=== PATIENT | male | born 1935 | race Caucasian/White ===

== ENCOUNTER 2022-06-28 20:47 | Emergency (ER) | payer MEDICARE, OTHER, SELFPAY ==
[2022-06-28] VITALS (20 sets, daily range): BP systolic 101–137; BP diastolic 64–90; PULSE 65–66; RESP 17; TEMP 36.4; O2SAT 94–98
--- NOTE | ~2022-06-28 | XR_ITS ---
XR chest 1V portable 06/28/2022 21:42 Indication: Altered mental status Procedure: AP portable chest Comparison: No prior studies Findings: Heart size normal. No focal air space disease, pulmonary edema, pleural effusion or suspect ed pneumothorax. No acute osseous abnormality. Impression: 1: No acute cardiopulmonary disease. Reviewed, dictated and finalized at location A. ND MAKER Impression: 1: No acute cardiopulmonary disease.
--- NOTE | ~2022-06-28 | CT_ITS ---
EXAMINATION: CT brain wo con DATE: 06/28/2022 21:57 INDICATION: Altered mental status TECHNIQUE: Computed tomography (CT) of the head was performed without intravenous contrast. The dose- length product was 832.33 mGy-cm. Automated exposure control and iterative reconstruction technique w ere employed. COMPARISON: None FINDINGS: Generalized atrophy. There are scattered mild periventricular and subcortical white matter changes, most likely related to small vessel ischemic disease (microangiopathy). There is intracrania l atherosclerosis. No ventriculomegaly or midline shift. No acute intracranial hemorrhage, infarction , mass or mass effect. Paranasal sinuses and left mastoid air cells are pneumatized. There is a right mastoid effusion. No depressed skull fractures. Study limited by motion artifact near the vertex. IMPRESSION: 1. No acute intracranial abnormality. Reviewed, dictated and finalized at location A. Y SCIENTIST
--- NOTE | 2022-06-28 21:32 | ECG_ITS ---
Measurements Intervals [place] Rate: 64 P: 47 WA: 274 QRS: -21 QRSD: 135 T: 56 QT: 441 QTc: 456 Interpretive Statements SINUS RHYTHM WITH FIRST DEGREE AV BLOCK INCOMPLETE LEFT BUNDLE BRANCH BLOCK ABNORMAL ECG ] NO PREVIOUS ECG AVAILABLE FOR COMPARISON Electronically Signed On 06-29-2022 15:18:54 SCOOP OPERATOR by Conrad Cortez M.D.
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
[2022-06-28 22:20] LABS: Basophils Percent Auto 0.3 % (0.2-1.2); Eosinophils Absolute Auto 0.1 K/mm3 (0-0.3); Eosinophils Percent Auto 1.9 % (0-4.4); Hematocrit 37.6 % (42.0-52.0); Hemoglobin 12.2 g/dL (14.0-18.0); Immature Granulocyte Absolute 0.01 K/mm3 (0.00-0.031); Immature Granulocyte Percent A 0.2 % (0-0.5); Immature Platelet Fraction Pct 3.2 % (0.9-11.2); Lymphocytes Absolute Auto 1.67 K/mm3 (0.9-3.2); Lymphocytes Percent Auto 29.1 % (18.3-44.2); Mean Corpuscular HGB Conc 32.4 g/dl (32-36); Mean Corpuscular Hemoglobin 28.8 pg (26-34); Mean Corpuscular Volume 88.7 fl (80-100); Mean Platelet Volume 9.9 fl (7.4-10.4); Monocytes Absolute Auto 0.4 K/mm3 (0.1-0.6); Monocytes Percent Auto 7.3 % (2.6-8.5); Neutrophils Absolute Auto 3.5 K/mm3 (1.3-6.7); Neutrophils Percent Auto 61.2 % (45.5-73.1); Platelet Count Result 124 k/mm3 (150-375); Red Blood Count 4.24 M/mm3 (4.6-6.20); Red Cell Distribution Width 14.7 % (11.5-14.5); White Blood Count 5.7 K/mm3 (4.5-10.0)
[2022-06-28 22:25] LABS: Glucose Point of Care 162 mg/dl (65-105)
[2022-06-28 22:26] LABS: Alanine Aminotransferase 12 U/L (6-50); Albumin Level 3.7 g/dL (3.5-5.1); Alkaline Phosphatase 109 U/L (38-126); Anion Gap 4 mmol/L (8-16); Aspartate Amino Transferase 19 U/L (17-59); Bilirubin,Total 0.4 mg/dL (0.2-1.3); Blood Urea Nitrogen 30 mg/dL (9-20); Calcium 8.5 mg/dL (8.4-10.2); Carbon Dioxide 27 mmol/L (22-30); Chloride 106 mmol/L (98-107); Estimated CRCL calculation 39 ml/min; Estimated Glomerular Filt Rate 58; Glucose 169 mg/dL (65-110); Potassium 4.2 mmol/L (3.4-5.0); Sodium 137 mmol/L (137-145)
[2022-06-28 22:33] LABS: Appearance Urine Cloudy (Clear); Bilirubin Urine Negative (Negative); Blood Urine Trace-intact (Negative); Color Urine Yellow (Yellow); Glucose Urine UA 2+ mg/dL (Negative); Ketones Urine Negative (Negative); Leukocyte Esterase Ur 1+ LEU/UL (Negative); Nitrate Urine Negative (Negative); Protein Urine Trace mg/dL (Negative); Specific Grav Ur 1.015 (1.001-1.035); Urobilinogen Urine 0.2 mg/dL (<2.0); pH Urine 5.5 (5.0-9.0)
[2022-06-28 22:38] LABS: Mucus Urine Rare /lpf; WBC Urine >75 /hpf
[2022-06-28 22:45] LABS: Add Urine Microscopic? YES
[2022-06-28 22:51] LABS: Influenza A QL RT-PCR Negative (Negative); Influenza B QL RT-PCR Negative (Negative); RSV RNA, RT-PCR Negative (Negative); SARS-CoV-2 RNA PCR Negative
[2022-06-28] MEDS: HALOPERIDOL LACTATE 5 MG/ML VIAL IV PUSH (23:00)
--- NOTE | 2022-06-28 23:48 | PC.NURSE ---
Per richard Culp to not obtain blood cultures prior to antibiotic.
[2022-06-29 00:11] VITALS: BP 150/92
[2022-06-29 00:14] VITALS: O2SAT 97
[2022-06-29 00:15] VITALS: O2SAT 97
--- NOTE | 2022-06-29 00:27 | PC.NURSE ---
Gave report to Ann Cook regarding patient return. no questions at this time. awaiting EMS transport.
[2022-06-29 00:30] VITALS: O2SAT 96
[2022-06-29 00:45] VITALS: O2SAT 97
[2022-06-29 05:07] VITALS: BP 146/78; PULSE 70; RESP 15; O2SAT 98
== END 2022-06-29 05:09 ==
PROVIDERS: Emergency Provider Emergency Medicine; PCP Nurse Practitioner Family
DX: F03.911 Unspecified dementia, unspecified severity, with agitation (principal); N39.0 Urinary tract infection, site not specified; Z20.822 Contact with and (suspected) exposure to COVID-19; I10 Essential (primary) hypertension; N40.0 Benign prostatic hyperplasia without lower urinary tract symptoms; E11.9 Type 2 diabetes mellitus without complications; I44.0 Atrioventricular block, first degree; I44.7 Left bundle-branch block, unspecified
CPT/HCPCS: 36415; 70450; 71045; 80053; 81001; 82948; 85025; 85055; 87086; 87088; 87637; 93005; 96365; 96375; 99284; J0696; J1630

== ENCOUNTER 2022-07-28 20:50 | Emergency (ER) | payer MEDICARE, OTHER, SELFPAY ==
[2022-07-28] VITALS (10 sets, daily range): BP systolic 130–156; BP diastolic 75–78; PULSE 64–79; RESP 12–19; TEMP 36.4; O2SAT 97–98
--- NOTE | ~2022-07-28 | XR_ITS ---
XR chest 1V portable 07/29/2022 00:44 Indication: Altered mental status Procedure: AP portable chest Comparison: 06/28/2022 Findings: Heart size normal. There is bibasilar atelectasis. No focal pneumonia, edema, pleural effus ion or pneumothorax. There is dextroscoliosis of the thoracic spine. There are degenerative changes o f the glenohumeral joints. Impression: 1: Bibasilar atelectasis. Reviewed, dictated and finalized at location A. Impression: 1: Bibasilar atelectasis.
--- NOTE | ~2022-07-28 | CT_ITS ---
EXAMINATION: CT brain wo con DATE: 07/29/2022 00:58 INDICATION: Confusion. TECHNIQUE: Computed tomography (CT) of the head was performed without intravenous contrast. The dose- length product was 605.33 mGy-cm. Automated exposure control and iterative reconstruction technique w ere employed. COMPARISON: CT dated 06/28/2022 FINDINGS: Mild generalized atrophy. 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 No ventriculomegaly or midline shift. There is intracran ial atherosclerosis. No acute intracranial hemorrhage, infarction, mass or mass effect. There is intr acranial atherosclerosis. There is a right mastoid effusion. Left mastoid air cells are pneumatized. No significant abnormality of the paranasal sinuses. No depressed skull fractures. IMPRESSION: 1. No acute intracranial abnormality. 2: Chronic right posterior parietal infarction. 3: Chronic age-related findings. Reviewed, dictated and finalized at location A.
--- NOTE | 2022-07-28 20:59 | ECG_ITS ---
Measurements Intervals [place] Rate: 65 P: 24 MN: 260 QRS: -20 QRSD: 130 T: 121 QT: 426 QTc: 446 Interpretive Statements SINUS RHYTHM WITH FIRST DEGREE AV BLOCK INCOMPLETE LEFT BUNDLE BRANCH BLOCK CANNOT RULE OUT SEPTAL INFARCT, AGE INDETERMINATE BORDERLINE ST-T WAVE ABNORMALITY- LAT/HIGH LAT LEADS BASELINE ARTIFACT- I, II, V1-V3, V5-V6 ABNORMAL ECG COMPARED TO ECG 06/28/2022 22:11:37 NO SIGNIFICANT CHANGES Electronically Signed On 07-28-2022 21:45:47 CDT by Demarcus Matthews D.O.
[2022-07-29] VITALS (11 sets, daily range): BP systolic 156–173; BP diastolic 91; PULSE 72–81; RESP 12–18; O2SAT 95–98
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
[2022-07-29] MEDS: HALOPERIDOL LACTATE 5 MG/ML VIAL IV PUSH ×2 (00:36→04:41)
--- NOTE | 2022-07-29 00:45 | PC.NURSE ---
Patient constantly trying to get out of bed, slightly agitated, bed alarm under patient. ERP notified, new orders placed. Sitter placed to bedside as well as continued bed alarm.
[2022-07-29 00:46] LABS: Basophils Percent Auto 0.3 % (0.2-1.2); Eosinophils Absolute Auto 0.1 K/mm3 (0-0.3); Hemoglobin 12.4 g/dL (14.0-18.0); Immature Granulocyte Absolute 0.02 K/mm3 (0.00-0.031); Immature Granulocyte Percent A 0.3 % (0-0.5); Immature Platelet Fraction Pct 3.8 % (0.9-11.2); Lymphocytes Absolute Auto 1.63 K/mm3 (0.9-3.2); Lymphocytes Percent Auto 27.3 % (18.3-44.2); Mean Corpuscular HGB Conc 31.8 g/dl (32-36); Mean Corpuscular Hemoglobin 28.5 pg (26-34); Mean Corpuscular Volume 89.7 fl (80-100); Mean Platelet Volume 10.5 fl (7.4-10.4); Monocytes Absolute Auto 0.4 K/mm3 (0.1-0.6); Monocytes Percent Auto 6.7 % (2.6-8.5); Neutrophils Absolute Auto 3.8 K/mm3 (1.3-6.7); Neutrophils Percent Auto 63.4 % (45.5-73.1); Platelet Count Result 126 k/mm3 (150-375); Red Blood Count 4.35 M/mm3 (4.6-6.20); Red Cell Distribution Width 15.2 % (11.5-14.5)
[2022-07-29 00:56] LABS: Alanine Aminotransferase 12 U/L (6-50); Albumin Level 3.6 g/dL (3.5-5.1); Alkaline Phosphatase 113 U/L (38-126); Anion Gap 7 mmol/L (8-16); Aspartate Amino Transferase 20 U/L (17-59); Bilirubin,Total 0.5 mg/dL (0.2-1.3); Blood Urea Nitrogen 28 mg/dL (9-20); Calcium 8.6 mg/dL (8.4-10.2); Carbon Dioxide 26 mmol/L (22-30); Chloride 108 mmol/L (98-107); Estimated Glomerular Filt Rate > 60; Glucose 140 mg/dL (65-110); Potassium 3.9 mmol/L (3.4-5.0); Sodium 141 mmol/L (137-145)
[2022-07-29 01:17] LABS: Influenza A QL RT-PCR Negative (Negative); Influenza B QL RT-PCR Negative (Negative); RSV RNA, RT-PCR Negative (Negative); SARS-CoV-2 RNA PCR Negative
[2022-07-29 03:12] LABS: Appearance Urine Clear (Clear); Bacteria Urine None Seen /hpf; Bilirubin Urine Negative (Negative); Blood Urine Trace (Negative); Color Urine Yellow (Yellow); Glucose Urine UA 3+ mg/dL (Negative); Ketones Urine Negative (Negative); Leukocyte Esterase Ur Negative LEU/UL (Negative); Nitrate Urine Negative (Negative); Non Pathogenic Casts 0-2; Protein Urine Trace mg/dL (Negative); Specific Grav Ur 1.024 (1.001-1.035); Squamous Epithelial Cell Urine None seen /hpf (Few); Urobilinogen Urine 0.2 mg/dL (<2.0)
[2022-07-29 03:13] LABS: Add Urine Microscopic? YES
--- NOTE | 2022-07-29 03:29 | PC.NURSE ---
Report called to Kailee, patients caregiver at [facility] at 0325.
--- NOTE | 2022-07-29 04:38 | PC.NURSE ---
Patient still attempting to get out of bed, getting agitated, with bed alarm and sitter. ERP notified. Patient waiting for transport to take him back to the [place]. New orders received.
[2022-07-29] MEDS: LORazepam INJ (*CRX) 2 MG/ML VIAL 1 MG IV PUSH (05:00)
== END 2022-07-29 06:19 ==
PROVIDERS: Emergency Provider Physician Assistant; PCP Nurse Practitioner Family
DX: F03.90 Unspecified dementia, unspecified severity, without behavioral disturbance, psychotic disturbance, mood disturbance, and anxiety (principal); Z20.822 Contact with and (suspected) exposure to COVID-19; I10 Essential (primary) hypertension; E11.9 Type 2 diabetes mellitus without complications; N40.0 Benign prostatic hyperplasia without lower urinary tract symptoms
CPT/HCPCS: 36415; 70450; 71045; 80053; 81001; 85025; 85055; 87077; 87086; 87147; 87181; 87186; 87637; 93005; 96374; 96375; 96376; 99284; J1630; J2060

== ENCOUNTER 2023-01-04 11:00 | Emergency (ER) | payer MEDICARE, OTHER, SELFPAY ==
[2023-01-04] VITALS (8 sets, daily range): BP systolic 105–135; BP diastolic 75–88; PULSE 68–75; RESP 12–18; TEMP 36.8; O2SAT 95–99
--- NOTE | ~2023-01-04 | CT_ITS ---
EXAMINATION: CT brain wo con DATE: 01/04/2023 13:02 INDICATION: Status post fall. Head injury. TECHNIQUE: Computed tomography (CT) of the head was performed without intravenous contrast. The dose- length product was 605.33 mGy-cm. Automated exposure control and iterative reconstruction technique w ere employed. COMPARISON: CT dated 07/29/2022 FINDINGS: Generalized atrophy. There are scattered moderate periventricular and subcortical white mat ter changes, most likely related to small vessel ischemic disease (microangiopathy). No acute intracr anial hemorrhage, infarction, mass or mass effect. There is intracranial atherosclerosis. Paranasal s inuses are pneumatized. There is a right mastoid effusion. There is a chronic right posterior parieta l infarction. IMPRESSION: 1. No acute intracranial abnormality. Reviewed, dictated and finalized at location B.
--- NOTE | ~2023-01-04 | XR_ITS ---
XR hip RT 2V w AP pelvis 01/04/2023 13:08 Indication: Multiple recent falls. Procedure: AP pelvis and 2 views right hip Comparison: No prior studies for comparison. Findings: There is moderate osteoarthritis of the hips. Pelvic rings are intact. There is an endovasc ular stent in the distal abdominal aorta and iliac vessels. Moderate colonic fecal loading. No acute fracture or traumatic malalignment. Impression: 1: No acute fracture. Reviewed, dictated and finalized at location B. Impression: 1: No acute fracture.
--- NOTE | ~2023-01-04 | CT_ITS ---
EXAMINATION: CT cervical spine wo con DATE: 01/04/2023 13:02 INDICATION: Status post fall. TECHNIQUE: Computed tomography (CT) of the cervical spine was performed without intravenous contrast. The dose-length product was 396 mGy-cm. Automated exposure control and iterative reconstruction tech nique were employed. COMPARISON: None FINDINGS: Vertebral body heights are maintained. There is degenerative disc disease with disc narrowi ng at C4-5 through C6-7. There is straightening of cervical lordosis. There is moderate multilevel u ncinate hypertrophy. Odontoid process is normal. Craniovertebral junction is normal. No paraspinal so ft tissue abnormality. There is carotid atherosclerosis. No paraspinal soft tissue abnormality. IMPRESSION: 1. No acute fracture. 2: Severe cervical spondylosis. Reviewed, dictated and finalized at location B.
--- NOTE | ~2023-01-04 | XR_ITS ---
EXAMINATION: XR chest 1V portable INDICATION: Weakness TECHNIQUE: Portable AP chest at 1145 hours COMPARISON: 07/29/2022 FINDINGS: There is mild atelectasis of the lung bases. No pleural effusion or pneumothorax. The cardi omediastinal silhouette is stable. Calcified bilateral hilar lymph nodes are consistent with old gran ulomatous disease. Apparent gas under the right hemidiaphragm is consistent with colonic interpositio n. IMPRESSION: 1. Mild atelectasis of the lung bases. Reviewed, dictated and finalized at location A.
--- NOTE | 2023-01-04 11:27 | ECG_ITS ---
Measurements Intervals [place] Rate: 70 P: 19 [place]: 293 QRS: -35 QRSD: 145 T: 140 QT: 420 QTc: 456 Interpretive Statements SINUS RHYTHM WITH FIRST DEGREE AV BLOCK WITH OCCASIONAL VENTRICULAR PREMATURE COMPLEXES MARKED LEFT AXIS DEVIATION [QRS AXIS < -30] INCOMPLETE LEFT BUNDLE BRANCH BLOCK ABNORMAL ECG COMPARED TO ECG 07/28/2022 20:57:30 PVC IS NOTED Electronically Signed On 01-04-2023 14:49:47 CDT by Conrad Cortez M.D.
[2023-01-04 11:47] LABS: Basophils Percent Auto 0.5 % (0.2-1.2); Eosinophils Percent Auto 0.7 % (0-4.4); Hemoglobin 12.1 g/dL (14.0-18.0); Immature Granulocyte Absolute 0.01 K/mm3 (0.00-0.031); Immature Granulocyte Percent A 0.2 % (0-0.5); Immature Platelet Fraction Pct 3.5 % (0.9-11.2); Lymphocytes Absolute Auto 1.01 K/mm3 (0.9-3.2); Mean Corpuscular HGB Conc 31.8 g/dl (32-36); Mean Corpuscular Hemoglobin 29.1 pg (26-34); Mean Corpuscular Volume 91.3 fl (80-100); Mean Platelet Volume 10.1 fl (7.4-10.4); Monocytes Absolute Auto 0.4 K/mm3 (0.1-0.6); Monocytes Percent Auto 7.1 % (2.6-8.5); Neutrophils Absolute Auto 4.1 K/mm3 (1.3-6.7); Neutrophils Percent Auto 73.5 % (45.5-73.1); Platelet Count Result 118 k/mm3 (150-375); Red Blood Count 4.16 M/mm3 (4.6-6.20); Red Cell Distribution Width 15.3 % (11.5-14.5); White Blood Count 5.6 K/mm3 (4.5-10.0)
[2023-01-04 11:54] LABS: Alanine Aminotransferase 13 U/L (6-50); Albumin Level 3.4 g/dL (3.5-5.1); Alkaline Phosphatase 103 U/L (38-126); Anion Gap 2 mmol/L (8-16); Aspartate Amino Transferase 18 U/L (17-59); Bilirubin,Total 0.6 mg/dL (0.2-1.3); Blood Urea Nitrogen 28 mg/dL (9-20); Calcium 8.5 mg/dL (8.4-10.2); Carbon Dioxide 28 mmol/L (22-30); Chloride 106 mmol/L (98-107); Estimated CRCL calculation 39 ml/min; Estimated Glomerular Filt Rate 52; Glucose 144 mg/dL (65-110); Potassium 4.2 mmol/L (3.4-5.0); Sodium 136 mmol/L (137-145)
[2023-01-04 11:57] LABS: Appearance Urine Clear (Clear); Bilirubin Urine Negative (Negative); Blood Urine Negative (Negative); Color Urine Yellow (Yellow); Glucose Urine UA 3+ mg/dL (Negative); Ketones Urine Negative (Negative); Leukocyte Esterase Ur Negative LEU/UL (Negative); Nitrate Urine Negative (Negative); Protein Urine Negative (Negative); Specific Grav Ur 1.019 (1.001-1.035); Urobilinogen Urine 0.2 mg/dL (<2.0); pH Urine 6.5 (5.0-9.0)
[2023-01-04 12:01] LABS: Add Urine Microscopic? NO
--- NOTE | 2023-01-04 12:07 | PC.NURSE ---
patient's arrived and states that patient's speech is a little more slurred than normal. provider aware
--- NOTE | 2023-01-04 12:19 | ED.WEAKNESS ---
HPI - Weakness General Chief complaint: Weakness Stated complaint: fall Time Seen by Provider: 01/04/23 12:18 Source: patient and EMS Mode of arrival: EMS Limitations: no limitations History of Present Illness HPI Narrative: 87 years old white female came from memory care unit with his because of multiple falls, possible head injury and possible neck pain, possible right hip pain. The is telling me that the patient have unsteady gait. The found him sitting next to his bed on the floor yesterday. Unwitnessed falls. Denied that the patient have any fever, chills, nausea, vomiting, chest pain, shortness of breath or headache. Patient been going through physical therapy for chronic neck pain and back pain. Related Data Allergies Allergy/AdvReac Type Severity Reaction Status Date / Time carvedilol Allergy Nausea and Verified 06/28/22 22:58 Vomiting donepezil [From Aricept] Allergy Nausea and Verified 06/28/22 22:58 Vomiting Penicillins Allergy Rash Verified 06/28/22 22:58 clindamycin AdvReac Hallucinati Verified 06/28/22 22:58 ng codeine AdvReac Hallucinati Verified 06/28/22 22:58 ng diphenhydramine AdvReac Hallucinati Verified 06/28/22 22:58 [From Benadryl] ng gemfibrozil [From Lopid] AdvReac Cramping Verified 06/28/22 22:58 of the Muscles promethazine AdvReac Confusion Verified 06/28/22 22:58 verapamil AdvReac Cramping Verified 06/28/22 22:58 of the Muscles Review of Systems Review of Systems: All systems reviewed & are unremarkable except as noted in HPI and below PMFSH Past Medical History Medical History BPH (benign prostatic hyperplasia) Dementia Diabetes HTN (hypertension) Social History Social History Social History: denies drugs alcohol or tobacco. Exam Narrative: General appearance: Well-developed, well-nourished Skin: Normal color Head: Normocephalic, nontraumatic Eyes: Clear conjunctiva ENT: Oropharynx normal, ears normal, nose normal Neck: Slight neck tenderness posteriorly, no bruises or swelling. Chest and respiratory: Airway patent, no respiratory distress, no accessory muscle use Heart: Regular rate/rhythm Abdomen: Soft, nontender, no organomegaly, quiet bowel sounds Vascular: Normal peripheral pulses, normal capillary refill. Musculoskeletal: Normal range of motion, nontender back Neurologic: Alert, disoriented x4 Course Vital Signs Vital signs: Vital Signs Temperature 36.8 C 01/04/23 10:56 Pulse Rate 75 01/04/23 10:56 Respiratory Rate 16 01/04/23 10:56 Blood Pressure 105/75 01/04/23 10:56 Pulse Oximetry 97 01/04/23 10:56 Oxygen Delivery Room Air 01/04/23 10:56 Temperature 36.8 C 01/04/23 10:56 Pulse Rate 70 01/04/23 13:46 Respiratory Rate 12 01/04/23 13:46 Blood Pressure 131/84 01/04/23 13:46 Pulse Oximetry 98 01/04/23 13:45 Oxygen Delivery Room Air 01/04/23 10:56 MDM - Weakness Lab Data 01/04/23 11:37 01/04/23 11:38 Labs: Lab Results 01/04/23 01/04/23 01/04/23 Range/Units 11:37 11:38 11:51 WBC 5.6 (4.5-10.0) K/mm3 RBC 4.16 L (4.6-6.20) M/mm3 Hgb 12.1 L (14.0-18.0) g/dL Hct 38.0 L (42.0-52.0) % MCV 91.3 (80-100) fl MCH 29.1 (26-34) pg MCHC 31.8 L (32-36) g/dl RDW 15.3 H (11.5-14.5) % Plt Count 118 L (150-375) k/mm3 MPV 10.1 (7.4-10.4) fl Immature Gran % (Auto) 0.2 (0-0.5) % Neut % (Auto) 73.5 H (45.5-73.1) % Lymph % (Auto) 18.0 L (18.3-44.2) % [place] % (Auto) 7.1 (2.6-8.5) % Eos % (Auto) 0.7 (0-4.4) % Baso % (Auto) 0.5 (0
[2023-01-04] MEDS: SODIUM CHLORIDE 0.9% IV 1,000 ML 500 ML IV CONT (13:21)
== END 2023-01-04 14:17 ==
PROVIDERS: Emergency Provider Emergency Medicine; PCP Nurse Practitioner Family
DX: Z04.3 Encounter for examination and observation following other accident (principal); F03.90 Unspecified dementia, unspecified severity, without behavioral disturbance, psychotic disturbance, mood disturbance, and anxiety; E11.9 Type 2 diabetes mellitus without complications; I10 Essential (primary) hypertension; N40.0 Benign prostatic hyperplasia without lower urinary tract symptoms; M47.812 Spondylosis without myelopathy or radiculopathy, cervical region; W19.XXXA Unspecified fall, initial encounter
CPT/HCPCS: 36415; 70450; 71045; 72125; 73502; 80053; 81003; 85025; 85055; 93005; 96360; 99284; J7030

== ENCOUNTER 2024-06-01 16:28 | Emergency (ER) | payer MEDICARE, OTHER, SELFPAY ==
--- NOTE | ~2024-06-01 | XR_ITS ---
CHEST RADIOGRAPH CLINICAL HISTORY: Cough, altered mental status . COMPARISON: 01/04/2023 TECHNIQUE: Single portable view of the chest. FINDINGS The cardiomediastinal silhouette is unremarkable. The lungs are clear. Visualized osseous structures and soft tissues are unremarkable. IMPRESSION: No focal infiltrate or effusion. Reviewed, dictated and finalized at location A. CARVING LATHE OPERATOR
--- NOTE | ~2024-06-01 | CT_ITS ---
History: Altered mental status PROCEDURE: CT head without contrast. COMPARISON: 01/04/2023 TECHNIQUE: Axial imaging of the head performed from the skull base to the vertex without IV contrast. Sagittal a nd coronal reformations obtained. DLP: 605 mGy-cm FINDINGS: The ventricles are enlarged. The dilatation of the ventricles is proportional to the degree of sulcal prominence, not uncommon in the senescent brain. Decreased attenuation is identified within the periventricular white matter, likely secondary to micr ovascular ischemic disease, in a patient of this age. There is no mass, mass effect or midline shift. There is no abnormal extra-axial fluid collection or intracranial hemorrhage. Visualized paranasal sinuses are clear. Opacification of the right mastoid air cells are identified. The left mastoid air cells are well aerated No acute displaced fractures within the overlying cranium. Impression: No acute intracranial hemorrhage or suspicious mass effect. Opacification of the right mastoid air cells. Reviewed, dictated and finalized at location A. CIDE SQUAD CAPTAIN Impression: No acute intracranial hemorrhage or suspicious mass effect. Opacification of the right mastoid air cells.
[2024-06-01 16:28] VITALS: BP 146/96; PULSE 74; RESP 16; TEMP 36.4; O2SAT 100
--- NOTE | 2024-06-01 16:34 | ECG_ITS ---
Test Date: 2024-06-01 16:45:04 Measurements Intervals [place] Rate: 70 P: -2 SD: 311 QRS: 0 QRSD: 141 T: 140 QT: 421 QTc: 457 Interpretive Statements SINUS RHYTHM WITH FIRST DEGREE AV BLOCK WITH OCCASIONAL VENTRICULAR PREMATURE COMPLEXES LEFT BUNDLE BRANCH BLOCK [120+ ms QRS DURATION, 80+ ms Q/S IN V1/V2, 85+ ms R IN I/aVL/V5/V6] No previous ECG available for comparison Electronically Signed On 06-01-2024 17:54:30 CARDIAC SPECIALIST by Refugio Mcclellan M.D.
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
[2024-06-01 17:00] LABS: Hematocrit 37.7 % (42.0-52.0); Hemoglobin 12.2 g/dL (14.0-18.0); Immature Platelet Fraction Pct 3.5 % (0.9-11.2); Mean Corpuscular HGB Conc 32.4 g/dl (32-36); Mean Corpuscular Volume 92.6 fl (80-100); Mean Platelet Volume 9.7 fl (7.4-10.4); Platelet Count Result 88 k/mm3 (150-375); Red Blood Count 4.07 M/mm3 (4.6-6.20); Red Cell Distribution Width 14.2 % (11.5-14.5); White Blood Count 5.1 K/mm3 (4.5-10.0)
[2024-06-01 17:10] LABS: Acetaminophen < 10 ug/mL (10-30); Ethanol < 10 mg/dL (<10); Salicylate < 1.0 mg/dL (2-20)
[2024-06-01 17:13] LABS: Alanine Aminotransferase 22 U/L (6-50); Albumin Level 3.8 g/dL (3.5-5.1); Alkaline Phosphatase 120 U/L (38-126); Anion Gap 6 mmol/L (4-12); Aspartate Amino Transferase 22 U/L (17-59); Bilirubin,Total 0.4 mg/dL (0.2-1.3); Blood Urea Nitrogen 28 mg/dL (9-20); Calcium 8.6 mg/dL (8.4-10.2); Carbon Dioxide 29 mmol/L (22-30); Chloride 106 mmol/L (98-107); Estimated CRCL calculation 40 ml/min; Estimated Glomerular Filt Rate 54; Glucose 165 mg/dL (65-110); Potassium 4.6 mmol/L (3.4-5.0); Sodium 141 mmol/L (137-145)
[2024-06-01 17:27] LABS: Add Urine Microscopic? YES; Appearance Urine Clear (Clear); Bacteria Urine Rare /hpf; Bilirubin Urine Negative (Negative); Blood Urine Trace (Negative); Color Urine Yellow (Yellow); Glucose Urine UA Negative (Negative); Ketones Urine Negative (Negative); Leukocyte Esterase Ur 2+ LEU/UL (Negative); Nitrate Urine Negative (Negative); Non Pathogenic Casts 0-2; Protein Urine Negative (Negative); Specific Grav Ur 1.016 (1.001-1.035); Squamous Epithelial Cell Urine None Seen /hpf (Few); Urobilinogen Urine 0.2 mg/dL (<2.0); WBC Urine 21-50 /hpf (0-3)
[2024-06-01 17:32] LABS: Atypical Lymphocytes Present; Band Neutrophils Percent 2 % (0-6); Eosinophils Absolute Manual 0.05 K/mm3 (0.02-0.50); Eosinophils Percent Manual 1 % (0-4); Lymphocytes Absolute Manual 0.56 K/mm3 (1.1-4.5); Monocytes Percent Manual 2 % (3-9); Neutrophils Absolute Manual 4.38 K/mm3 (1.3-6.7); Neutrophils Percent Manual 84 % (46-73); Total Cells Counted 100
[2024-06-01 17:33] LABS: Platelet Estimate Decreased (Adequate); Schistocytes None Seen
[2024-06-01 17:35] LABS: Influenza A QL RT-PCR Negative (Negative); Influenza B QL RT-PCR Negative (Negative); RSV RNA, RT-PCR Negative (Negative); SARS-CoV-2 RNA PCR Negative (Negative)
[2024-06-01 17:40] LABS: Amphetamine Screen Urine Negative (Negative); Barbiturate Screen Urine Negative (Negative); Benzodiazepines Screen Urine Negative (Negative); Cannabinoid Screen Urine Negative (Negative); Cocaine Screen Urine Negative (Negative); Methadone Screen Urine Negative (Negative); Opiate Screen Urine Negative (Negative); Phencyclidine Screen Urine Negative (Negative)
== END 2024-06-01 19:39 ==
PROVIDERS: Emergency Provider Emergency Medicine; PCP Nurse Practitioner Family
DX: F03.90 Unspecified dementia, unspecified severity, without behavioral disturbance, psychotic disturbance, mood disturbance, and anxiety (principal); Z11.52 Encounter for screening for COVID-19; I10 Essential (primary) hypertension; E11.9 Type 2 diabetes mellitus without complications; N40.0 Benign prostatic hyperplasia without lower urinary tract symptoms; I44.0 Atrioventricular block, first degree; I49.3 Ventricular premature depolarization; I44.7 Left bundle-branch block, unspecified
CPT/HCPCS: 36415; 70450; 71045; 80053; 80143; 80179; 80307; 81001; 82077; 84443; 85025; 85055; 87086; 87637; 93005; 99284

== ENCOUNTER 2024-08-02 10:10 | Emergency (ER) | payer MEDICARE, OTHER, SELFPAY ==
--- NOTE | ~2024-08-02 | CT_ITS ---
History: Fall PROCEDURE: CT head without contrast. COMPARISON: 06/01/2024 TECHNIQUE: Axial imaging of the head performed from the skull base to the vertex without IV contrast. Sagittal a nd coronal reformations obtained. DLP: 315 mGy-cm FINDINGS: The ventricles are enlarged. The dilatation of the ventricles is proportional to the degree of sulcal prominence, not uncommon in the senescent brain. Decreased attenuation is identified within the periventricular white matter, likely secondary to micr ovascular ischemic disease, in a patient of this age. There is no mass, mass effect or midline shift. There is no abnormal extra-axial fluid collection or intracranial hemorrhage. Mucoperiosteal thickening of the left maxillary sinus is identified, an interval change from prior. The remaining paranasal sinuses are unremarkable. Redemonstration of right-sided partial mastoid opacification. The left mastoid air cells are well aer ated. No acute displaced fractures within the overlying cranium. Impression: No acute intracranial hemorrhage or suspicious mass effect. Inflammatory sinus disease. Reviewed, dictated and finalized at location A. Impression: No acute intracranial hemorrhage or suspicious mass effect. Inflammatory sinus disease.
--- NOTE | ~2024-08-02 | CT_ITS ---
History: Fall PROCEDURE: CT cervical spine without intravenous contrast. COMPARISON: 01/04/2023 TECHNIQUE: Multiple contiguous axial images of the cervical spine were performed without the administration of i ntravenous contrast. DLP: 318 c mGy-cm FINDINGS: Straightening and slight reversal of the normal curvature of the cervical spine is identified, likely muscular in origin. Severe degenerative disease, with osteophyte formation, disc space narrowing, endplate changes and an kylosis. Facet arthropathy is also noted. There are bridging endplate osteophytes at multiple levels in the cervical spine, consistent with dif fuse idiopathic skeletal hyperostosis (DISH). No acute fractures are present. Biapical scarring. No soft tissue abnormality is present. The airway is patent. 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 Reviewed, dictated and finalized at location A. 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
[2024-08-02 10:11] VITALS: BP 108/69; PULSE 67; RESP 16; TEMP 36.7; O2SAT 97
--- OUTSIDE RECORDS SUMMARY | 2024-08-02 10:13 | XMS_ITS | Clinical Summary ---
Author Organization [facility] Address [address] [place] [address] Care Team Providers Care Precision Thread Grinder Operator Name Role Phone Terry Koch MD Unavailable [phone] Vinnie Lamb MD Unavailable Suzette Galeana [facility] Primary Care Provider [phone] Allergies Active Allergy Reactions Criticality Noted Date Comments Donepezil Unknown 09/29/2018 Nausea and severe diarrhea Diphenhydramine Anxiety,Other (see comment) Low 08/27/2017 Rambling speech, confusion, restlessness (IV Benadryl) Carvedilol Diarrhea,Nausea Only ,Other (see comment) 08/27/2017 Confusion and fatigue Clindamycin Diarrhea,GI Upset 08/27/2017 Codeine Hallucinations 08/27/2017 Gemfibrozil Myalgias 08/27/2017 Penicillins Rash Low 08/27/2017 Promethazine-Dm Other (see comment) 11/18/2017 Confusion and slurred speech Verapamil Other (see comment) 08/27/2017 Constipation Medications hydrALAZINE 25 MG tablet Take 25 mg by mouth 3 (three) times daily. Active acetaminophen 325 MG tablet Take 650 mg by mouth every 6 (six) hours as needed. Active mirtazapine 7.5 MG Tab tablet Take 7.5 mg by mouth nightly at bedtime. Active finasteride (PROSCAR) 5 MG tablet 1 TAB BY MOUTH EVERY MORNING (DX: BPH) 12/22/2021 Active melatonin 3 MG tablet Take 6 mg by mouth nightly as needed. Active dapagliflozin (FARXIGA) 10 MG Tab Take 1 tablet by mouth daily. Active Multiple Vitamins-Minera ls (ICAPS AREDS FORMULA OR) Take 1 capsule by mouth daily. Active potassium chloride CR (KLOR-CON M) 20 MEQ tablet Take 1 tablet (20 mEq total) by mouth daily. 10/11/2022 Active nortriptyline (PAMELOR) 25 MG capsule Take 1 capsule (25 mg total) by mouth nightly at bedtime. 11/17/2022 Active tamsulosin (FLOMAX) 0.4 MG Cap Take 1 capsule (0.4 mg total) by mouth daily. 10/11/2022 Active pantoprazole EC (PROTONIX) 40 MG tablet Take 1 tablet (40 mg total) by mouth 2 (two) times a day. 10/11/2022 Active risperiDONE (RISPERDAL) 1 MG tablet Take 1 tablet (1 mg total) by mouth 2 (two) times daily. 11/17/2022 Active LORazepam (ATIVAN) 0.5 MG tablet Take 1 tablet (0.5 mg total) by mouth as needed. 08/08/2022 Active OLANZapine (ZYPREXA) 5 MG tablet Take 1 tablet (5 mg total) by mouth 2 (two) times daily as needed. Active Active Problems Problem Noted Date Diagnosed Date GAL (acute kidney injury) 09/05/2021 Overview (10/26/2021): Last Assessment & Plan: Cr increased from 3.0 to 3.5 besides on cont IVF. requesting to send pt to the ER for more testing . AAA (abdominal aortic aneurysm) without rupture 08/21/2021 Weakness 10/17/2020 Chronic tension-type headache, not intractable 0 05/16/2020 Alzheimer's disease 03/26/2018 Vaccination refused by patient 02/07/2018 Abdominal aortic aneurysm (AAA) without rupture 09/29/2017 Cardiomyopathy ([facility]) 08/27/2017 Bradycardia 08/27/2017 Anxiety 07/24/2017 Hyperlipidemia 05/08/2017 Urge incontinence of urine 05/08/2017 Diabetes mellitus ([facility]) 11/28/2012 Overview (09/29/2018): Description: 11/26/2000 Peptic ulcer 11/28/2012 Essential hypertension Osteoarthritis Resolved Problems Problem Noted Date Diagnosed Date Resolved Date Encounter for preventive health examination 11/28/2012 01/22/2020 Immunizations Name Administration Dates Next Due Flublok (Quadrivalent) 02/21/2021,02/26/2020, Influenza Adult (Generic) 05/21/2018 PFIZER COVID-19 (ORIGINAL FO RMULATION, PURPLE CAP) mRNA, LNP-S, PF, 30 MCG/0.3 ML DOSE 03/04/2021,07/04/2020,06/13/2020 Pneumococcal (Pneumovax 23) 05/23/2005, 0 Pneumococcal (Prevnar 13) 01/28/2019 Td (Tenivac) preservative free 06/04/1996 Tdap (Adacel) 08/15/2020 Family History Medical History Relation Comments Thyroid cancer Brother CABG Father pancreatic cancer Father Anemia Mother Hypertension Mother Pancreatic cancer Paternal Aunt Relation Status Comments Brother Father (Age 72) 1978 Mother (Age 93) 1998- Paternal Aunt Social History Tobacco Use Types Packs/Day Years Used Date Smoking Tobacco: Former Cigarettes Q uit: 2012 Smokeless Tobacco: Never Tobacco Cessation:Counseling Given: Yes Comments:PIPE Alcohol Use Standard Drinks/Week Comments Yes 0 (1 standard drink = 0.6 oz pur e alcohol) wine/beer shasta PHQ-2 Answer Date Recorded PHQ-2 Score - If the patient scores above 3, please move on to questions 3-9 0 06/20/2021 Sex and Gender Information Value Date Recorded Sex Assigned at Not on file Legal Sex Male 7:35 PM CDT Gender Identity Not on file Sexual Orientation Not on file Occupation Industry Job Start Date Job End Date Not on file Not on file Not on file Not on file Last Filed Vital Signs Vital Sign Reading Time Taken Comments Blood Pressure 120/70 12/21/2022 12:28 PM CDT Pulse 84 12/21/2022 12:07 PM CDT Temperature 36.4 C (97.5 F) 08/25/2021 10:14 AM CDT Respiratory Rate 18 08/25/2021 10:14 AM CDT Oxygen Saturation 98% 12/21/2022 12:07 PM CDT Inhaled Oxygen Concentration - - Weight 74.4 kg (164 lb) 12/21/2022 12:07 PM CDT Height 172.7 cm (5' 8 ) 12/21/2022 12:07 PM CDT Body Mass Index 24.94 12/21/2022 12:07 PM CDT Plan of Treatment Health Maintenance Due Date Last Done Comments Diabetes: Retinopathy Eye Exam 1954 Zoster Vaccines (1 of 2) 1986 Annual Medicare Wellness Visit 2001 RSV Immunization or 60+ Years (1 - 1-dose 75+ series) 09/23/2011 Lipid Panel 05/03/2022 05/03/2021, 04/13, 04/01/2020, Additional history exists Hemoglobin A1C 03/21/2023 09/18/2022, 05/14, 09/06/2021, Additional history exists COVID-19 Vaccine ( season) 2024 03/04/2021, 07/04/2020, 06/13/2020 Influenza Adult (#1) 2024 02/21/2021, 02/26/2020, 01/28/2019, Additional history exists DTaP, Tdap and Td Vaccines (2 - Td or Tdap) 08/15/2030 08/15/2020, 06/04/1996 Pneumococcal Vaccine: 65+ Years Completed 01/28/2019, 05/23/2005, 06/12/1999 Meningococcal B Vaccine Aged Out No l onger eligible based on patient's age to complete this topic Meningococcal Vaccine Aged Out No lenore daniel eligible based on patient's age to complete this topic RSV Immunizations Under 20 Months Aged Out No longer eligible based on patient's age to complete this topic Goals Goal Patient Goal Type Associated Problems Recent Progress Patient-Stated? Author Health - patient able to perform ADLs independently General No Kasandra Wade RN Medical Devices Implanted Type Area Hardboard Factory Worker Device Identifier Shelf Expiration Date Model / Serial / Lot Helifx Properties Supervisor And 10 Anchors - [id number] Implanted:Qty: 6 on 08/21/2021 by Dawood Simons MD at [facility] Silex N/A: Aorta APTUS [id number] 08/17/2022 - / / [id number] 2 Description:6 GRAFT ANCHORS PUT IN Endurant 2 Stent Graft System Bifurcated Implanted:Qty: 1 on 08/21/2021 by Dawood Simons MD at [facility] Graft N/A: Aorta [employer] VASC[employer] - DIV [employer] 05/28/2023 [id number] / [id number] / Endurant 2 Stent Graft System Implanted:Qty: 1 on 08/21/2021 by Dawood Simons MD at [facility] Graft Left: Iliac [employer] - DIV [employer] 03/08/2023 [id number] / [id number] / Description:LEFT AORTA/LEFT ILIAC ARTERY GRAFT Endurant 2 Stent Graft Sysytem Implanted:Qty: 1 on 08/21/2021 by Dawood Simons MD at [facility] Graft Right: Iliac [employer] DIV [employer] 08/23/2022 [id number] / [id number] / Description:RIGHT ILIAC KAYLYNN RY/AORTA GRAFT Procedures Procedure Name Priority Date/Time Associated Diagnosis Comments HEMOGLOBIN, GLYCOSYLATED Routine 09/18/2022 LIPID PANEL Routine 05/03/2021 7:45 AM BOARD MILL SUPERVISOR Hyperlipidemia, unspecified hyperlipidemia type from Last 3 Months or Most Recently Relevant to Health Maintenance Results * HEMOGLOBIN, GLYCOSYLATED (09/18/2022) HGB A1C 6.7 % Narrative Resulting Agency Comment us Default History Genericprovider LABORATORY Final Result * (ABNORMAL) LIPID PANEL (05/03/2021 7:45 AM BOARD MILL SUPERVISOR) CHOLESTEROL 147 0 - 199 MG/DL [facility] TRIGLYCERIDES 211(H) 0.00 - 150.00 MG/DL [facility] Comment: NCEP REFERENCE VALUES FOR TRIGLYCERIDES: NORMAL: <150 MG/DL BORDERLINE HIGH: 150 - 199 MG/DL HIGH: 200 - 499 MG/DL VERY HIGH: >/= 500 MG/DL HDL 36(L) >40 MG/DL [email or web address] LDL (CALCULATED) 69 0 - 99 MG/DL [facility] Comment: CUTOFF VALUES RECOMMENDED BY THE NATIONAL CHOLESTEROL EDUCATION PROGRAM: DESIRABLE: CHOLESTEROL <200 MG/DL LDL <100 MG/DL BORDERLINE: CHOLESTEROL 200-239 MG/DL LDL 101-159 MG/DL HIGHER RISK: CHOLESTEROL >240 MG/DL LDL >160 MG/DL, HDL <40 MG/DL NON HDL CHOLESTEROL 111 NO REFERENCE RANGE MG/DL [facility] Comment: A REASONABLE GOAL FOR NON-HDL CHOLESTEROL IS ONE THAT IS 30 MG/DL HIGHER THAN THE LDL CHOLESTEROL GOAL. CHOL/HDL RATIO 4.1 0.0 - 5.0 . [facility] Comment:IS PATIENT FASTING?- >YES 05/03/2021 7:45 AM BOARD MILL SUPERVISOR 05/04/2021 5:47 AM BOARD MILL SUPERVISOR us Ajay Abdi MD LABORATORY Final Result Performing Organization Address City/State/[facility] Co de Phone Number [employer] [address] [place] [address], from Last 3 Months or Most Recently Relevant to Health Maintenance Insurance MEDICARE MEDICARE MEDICARE [employer] Advance Directives * Full Code (Latest Code Status on File) Date Activated Date Inactivated Comments 08/21/2021 5:24 PM 08/25/2021 4:19 PM Care Teams Precision Thread Grinder Operator Relationship Specialty Start Date End Date Suzette Galeana, [facility]- [address] [place] [address] PCP - General NURSE PRACTITIONER 11/10/21 Terry Koch MD [facility]. [address] [place] [address] [place] Fender Mechanic Apprentice CARDIOVASCULAR DISEASE 08/15/17 Vinnie Lamb MD [facility]. [address] [place] [address] EP Fender Mechanic Apprentice CLINICAL CARDIAC ELECTROPHYSIOLOGY 10/15/17
--- OUTSIDE RECORDS SUMMARY | 2024-08-02 10:13 | XMS_ITS | Data Portability ---
Author Organization [place] - [facility], [employer] Address [address] [place] [address] Care Team Providers Care Radar Operator Name Role Phone OSCAR DAIGLE Certified Welder SHAHAB ACUNA Urologist [facility] OTHER [facility] Literature Professor MARIELOS GOODRICH Bottle Capping Machine Operator FERNANDO LOBO Vascular Surgeon DEMARIO CARMONA Literature Professor [phone] Assessment Encounter Date Assessment Date Assessment LastModified by Organization Details LastModified Time 08/07/2023 08/07/2023 Medication Henderson es Trazodone 50 mg q HS Has been doing very well with his behaviors with the decreased dosage of Risperidone. Has not initiated any of the resident to resident altercations. He has been having good moods and behaviors. His sleep is most definitely varied. He will sometimes sleep during the day and then the night, or won't go to bed until wee hours of the morning. He has been tolerating the decreased dose without any behaviors. He is on Melatonin 10 mg nightly. Concern to give strong medication for sleep is that it increases risks of falls and given the associated side effects using medication for such could be more risk vs benefit. Can try Trazodone for sleep and see if this provides a benefit. He has been on such before, but given the changes in the progression of his dementia try and see if this helps with sleep. Signs and symptoms of when to seek further care reviewed with patient/caregiver/ family/facility staff. Patient to follow up with primary care provider or return to clinic for any worsening signs and symptoms. Always present to ER or Urgent Care with any progression of/alarming symptoms, significant changes in symptoms or any concerning or urgent matters. Patient/caregiver/ family/facility staff verbalized agreement and understanding of treatment plan. F/U 4 weeks, sooner if needed Not available 08/07/2023 09:53:51 09/11/2023 09/11/2023 Dementia: - The patient's dementia is progressing and worsening. Facility staff reports increased sleeping and more queuing. Continue to monitor the patient's cognitive and functional status. - Decrease Risperidone to 0.5 mg half a tablet twice a day to minimize sedation and monitor for any behavioral changes. Reassess the need for further adjustments in four weeks. Insomnia: - The patient's sleep is sporadic. Continue Trazodone 25 mg for sleep management and monitor for improvements in sleep quality. Hypertension: - The patient is currently on medication for high blood pressure and denies any symptoms such as chest pain, shortness of breath, dizziness, or visual disturbances. Blood pressure is at goal. - Obtain labs: CBC, CMP, and magnesium to monitor overall health and electrolyte balance. Diabetes: - The patient is on oral medications for diabetes but is not following a diabetic diet. - Obtain an A1C to assess glycemic control. - Encourage the patient to adhere to a diabetic diet and provide education on the importance of proper nutrition in diabetes management. Dementia with agitation: - Decrease Risperidone to 0.5 mg half a tablet twice a day and monitor for any behavioral changes. If the patient continues to do well without behaviors, consider further weaning of the medication. - In the event of behavioral changes, reassess the need for medication adjustments. Medication Changes Decrease Risperidone to 0.25 mg BID which you are to give 0.5 tablet of the 0.5 mg tablet Signs and symptoms of when to seek further care reviewed with patient/caregiver/ family/facility staff. Patient to follow up with primary care provider or return to clinic for any worsening signs and symptoms. Always present to ER or Urgent Care with any progression of/alarming symptoms, significant changes in symptoms or any concerning or urgent matters. Patient/caregiver/ family/facility staff verbalized agreement and understanding of treatment plan. F/U 4 weeks, sooner if needed [email or web address] Not available 09/12/2023 19:53:59 10/02/2023 10/02/2023 Dementia: - Progressing with worsening cognitive function and sleep disturbances. - No agitation or aggression observed. - Discontinue trazodone and nortriptyline. - Reduce risperidone to 0.25 mg in the morning, with an additional 0.25 mg daily as needed for behaviors. - Monitor for any changes in behavior and obtain a urine sample if agitation, aggression, or irritability occurs. Sleep disturbances: - Difficulty waking up during the daytime and sleeping throughout the night. - Discontinue trazodone and nortriptyline. - Adjust risperidone dosing as mentioned above. Diabetes: - A1C of 7.4. - Monitor A1C and adjust treatment as needed during the next lab check. - Reassess the impact of reduced risperidone on A1C levels. Coordination issues: - Drooling while eating. - Monitor for improvement after reducing risperidone. Thrombocytopenia: - Low platelet count, possibly due to risperidone. - Reduce risperidone as mentioned above. - Monitor platelet count during the next lab check in December. - Reassess the need for risperidone and consider discontinuation if behaviors improve. Hemoglobin and hematocrit levels: - Stable and within normal limits. - Continue monitoring during routine lab checks. Medication Orders / Changes Risperidone 0.5 mg Take 0.5 tablets daily in the AM. May take 0.5 tablets daily as needed for increasing agitation and aggression. d/c Trazodone d/c Nortriptyline Signs and symptoms of when to seek further care reviewed with patient/caregiver/ family/facility staff. Patient to follow up with primary care provider or return to clinic for any worsening signs and symptoms. Always present to ER or Urgent Care with any progression of/alarming symptoms, significant changes in symptoms or any concerning or urgent matters. Patient/caregiver/ family/facility staff verbalized agreement and understanding of treatment plan. F/U 4 weeks, sooner if needed [email or web address] Not available 10/02/2023 10:47:40 10/30/2023 10/30/2023 Dementia with agitation: - The patient has been experiencing increased exit-seeking behaviors and agitation following the gradual dose reduction of risperidone. Despite completing antibiotics for a urinary tract infection, the patient remains confused. - Adjust the risperidone dosage to 0.25 mg (half of a 0.5 mg tablet) twice daily to manage agitation and aggression. Urinary tract infection: - The patient has completed the antibiotic course for the urinary tract infection. - Plan: No further action needed at this time. - Monitor for any recurrent symptoms. Insomnia: - The patient is reported to be sleeping better with the current regimen. - Plan: Continue the current regimen for insomnia management. - Monitor and reassess as needed. Medication changes Adjust the risperidone dosage to 0.25 mg (half of a 0.5 mg tablet) twice daily for dementia with agitation. Signs and symptoms of when to seek further care reviewed with patient/caregiver/ family/facility staff. Patient to follow up with primary care provider or return to clinic for any worsening signs and symptoms. Always present to ER or Urgent Care with any progression of/alarming symptoms, significant changes in symptoms or any concerning or urgent matters. Patient/caregiver/ family/facility staff verbalized agreement and understanding of treatment plan. F/U 4 weeks, sooner if needed [email or web address] Not available 10/30/2023 16:28:58 12/04/2023 12/04/2023 Dementia with agitation: - The patient has been experiencing increased exit-seeking behaviors and agitation following the gradual dose reduction of risperidone. Despite completing antibiotics for a urinary tract infection, the patient remains confused. Dosage adjusted and doing better. Insomnia: - The patient is reported to be sleeping better with the current regimen. - Plan: Continue the current regimen for insomnia management. - Monitor and reassess as needed. Diarrhea Cholestyramine 4 mg BID to help with diarrhea. Hold for constipation. Bulks up stool and decreases episodes of diarrhea. Signs and symptoms of when to seek further care reviewed with patient/caregiver/ family/facility staff. Patient to follow up with primary care provider or return to clinic for any worsening signs and symptoms. Always present to ER or Urgent Care with any progression of/alarming symptoms, significant changes in symptoms or any concerning or urgent matters. Patient/caregiver/ family/facility staff verbalized agreement and understanding of treatment plan. [email or web address] Not available 12/04/2023 13:25:50 Plan of Treatment Reminders Order Date Submit Date Provider Last Modified By Organization Details Last Modified Time Details Appointments None recorded. Lab unlisted lab - complete blood count with auto diff* [email or web address], [place], [address], 17:23:22 CMP, serum or plasma [address], [place], [address], 4 13:48:06 magnesium, serum or plasma 2023 024 ALYCIA Francisco, [address], [place], [address], 4 13:48:06 HbA1c (hemoglobin A1c), blood 2023 024 ALYCIA Francisco, [address], [place], [address], 4 13:48:05 Referral None recorded. Procedures None recorded. Surgeries None recorded. Imaging None recorded. Medication Orders finasteride 5 mg tablet 2023 024 [facility], [address] [place] [address], [id number], 4 13:25:12 tamsulosin 0.4 mg capsule 2023 024 [facility], [address] [place] [address], [address], 4 13:25:12 risperidone 0.5 mg tablet 2023 024 [facility], [address] [place] [address], [id number], 4 13:25:13 melatonin 10 mg tablet 2023 024 [facility], [address] [place] [address], [address], 4 13:25:10 Cholestyram ine Light 4 gram oral powder 2023 024 [facility], [address] [place] [address], [place], [address], 4 13:25:14 pantoprazol e 40 mg tablet,cristela yed release 2023 024 [facility], [address] [place] [address], [address], 4 13:25:14 hydralazine 25 mg tablet 2023 024 [facility], [address] [place] [address], [place], [address], 4 13:25:11 glimepiride 1 mg tablet 2023 024 [facility], [address] [place] [address], [place], [address], 4 13:25:11 True Metrix Glucose Test Strip 2023 024 [facility], [address] [place] [address], [place], [address], 4 13:25:12 potassium chloride ER 20 mEq tablet,exte nded release(par t/cryst) 2023 024 [facility], [address] [place] [address], [place], [address], 4 13:25:11 risperidone 0.5 mg tablet 2023 024 [facility], [address] [place] [address], [id number], 4 19:57:10 trazodone 50 mg tablet 2023 024 [facility], [address] [place] [address], [id number], 4 09:14:24 Patient TargetsNo targets recorded. Patient Instructions Encounter Date Encounter Id Patient Instructions Last Modified By Organization Details Last Modified Time 08/07/2023 [id number] Try Trazodone fo r sleep and see if this helps. [facility] [email or web address] Not available 08/07/2023 09:52:06 Reason for Referral None Reported. Results Created Date Observation Date Name Description Value Unit Range Abnormal Flag Note LastModifiedBy Organization Detail LastModifiedTime 09/19/19 24 09/19/2023 COMPL ETE BLOOD COUNT WITH AUTO DIFF* WBC 6.18 10E3/ uL 4.50-1 1.50 Not Available [facility] [address], [place], [address], 09/20/2023 13:48:04 09/19/19 24 09/19/2023 COMPL ETE BLOOD COUNT WITH AUTO DIFF* RBC 5.26 10E6/ uL 4.60-6 .00 Not Available [facility] [address], [place], [address], 09/20/2023 13:48:04 09/19/19 24 09/19/2023 COMPL ETE BLOOD COUNT WITH AUTO DIFF* HGB 15.4 g/dL 14.0-1 8.0 Not Available [facility] [address], [place], [address], 09/20/2023 13:48:04 09/19/19 24 09/19/2023 COMPL ETE BLOOD COUNT WITH AUTO DIFF* HCT 48.8 % 40.0-5 4.0 Not Available [facility] [address], [place], [address], 09/20/2023 13:48:04 09/19/19 24 09/19/2023 COMPL ETE BLOOD COUNT WITH AUTO DIFF* MCV 93 fL 80-100 Not Available [facility] [address], [place], [address], 09/20/2023 13:48:04 09/19/19 24 09/19/2023 COMPL ETE BLOOD COUNT WITH AUTO DIFF* MCH 29 pg 26-32 Not Available [facility] [address], [place], [address], 09/20/2023 13:48:04 09/19/19 24 09/19/2023 COMPL ETE BLOOD COUNT WITH AUTO DIFF* MCHC 31.6 g/dL 32.0-3 6.0 low Not Available [facility] [address], [place], [address], 09/20/2023 13:48:04 09/19/19 24 09/19/2023 COMPL ETE BLOOD COUNT WITH AUTO DIFF* RDW 14.8 % 11.5-1 4.5 high Not Available [facility] [address], [place], [address], 09/20/2023 13:48:04 09/19/19 24 09/19/2023 COMPL ETE BLOOD COUNT WITH AUTO DIFF* plt 108 10E3/ uL 150-45 0 low Not Available [facility] [address], [place], [address], 09/20/2023 13:48:04 09/19/19 24 09/19/2023 COMPL ETE BLOOD COUNT WITH AUTO DIFF* neut% 68.2 % 50.0-7 0.0 Not Available [facility] [address], [place], [address], 09/20/2023 13:48:04 09/19/19 24 09/19/2023 COMPL ETE BLOOD COUNT WITH AUTO DIFF* lymph% 21.7 % 18.0-4 2.0 Not Available [facility] [address], [place], [address], 09/20/2023 13:48:04 09/19/19 24 09/19/2023 COMPL ETE BLOOD COUNT WITH AUTO DIFF* mono% 7.6 % 2.0-11 .0 Not Available [facility] [address], [place], [address], 09/20/2023 13:48:04 09/19/19 24 09/19/2023 COMPL ETE BLOOD COUNT WITH AUTO DIFF* eos% 1.9 % 1.0-3. 0 Not Available [facility] [address], [place], [address], 09/20/2023 13:48:04 09/19/19 24 09/19/2023 COMPL ETE BLOOD COUNT WITH AUTO DIFF* baso% 0.6 % 0.0-2. 0 Not Available [facility] [address], [place], [address], 09/20/2023 13:48:04 09/19/19 24 09/19/2023 COMPL ETE BLOOD COUNT WITH AUTO DIFF* Ig% 0.0 % 0.0-0. 6 Not Available [facility] [address], [place], [address], 09/20/2023 13:48:04 09/19/19 24 09/19/2023 COMPL ETE BLOOD COUNT WITH AUTO DIFF* neut# 4.21 10E3/ uL 2.30-8 .10 Not Available [facility] [address], [place], [address], 09/20/2023 13:48:04 09/19/19 24 09/19/2023 COMPL ETE BLOOD COUNT WITH AUTO DIFF* lymph# 1.34 10E3/ uL 0.80-4 .80 Not Available [facility] [address], [place], [address], 09/20/2023 13:48:04 09/19/19 24 09/19/2023 COMPL ETE BLOOD COUNT WITH AUTO DIFF* mono# 0.47 10E3/ uL 0.45-1 .30 Not Available [facility] [address], [place], [address], 09/20/2023 13:48:04 09/19/19 24 09/19/2023 COMPL ETE BLOOD COUNT WITH AUTO DIFF* eos# 0.12 10E3/ uL 0.00-0 .40 Not Available [facility] [address], [place], [address], 09/20/2023 13:48:04 09/19/19 24 09/19/2023 COMPL ETE BLOOD COUNT WITH AUTO DIFF* baso# 0.04 10E3/ uL 0.00-0 .10 Not Available [facility] [address], [place], [address], 09/20/2023 13:48:04 09/19/19 24 09/19/2023 COMPL ETE BLOOD COUNT WITH AUTO DIFF* Ig# 0.00 10E3/ uL 0.00-0 .09 Not Available [facility] [address], [place], [address], 09/20/2023 13:48:04 09/19/19 24 09/19/2023 HEMOG LOBIN A1C* hemoglobin A1C 7.4 % 3.7-6. 2 high Not Available [facility] [address], [place], [address], 09/20/2023 13:48:05 09/19/19 24 09/19/2023 HEMOG LOBIN A1C* EAG 166 mg/dL Holly l: 69-11 4 mg/dL Predi abete s: 117-1 37 mg/dL Diabe tuan: 140 mg/dL or Great er Not Available [facility] [address], [place], [address], 09/20/2023 13:48:05 09/19/19 24 09/19/2023 COMPR EHENS DANAE METAB OLIC PANEL * glucose 171 mg/dL 70-99 high The Ameri can Diabe tuan Assoc iatio n (ADA) recom mends the follo wing crite howard for the diagn osis of diabe tuan: 1) Sympt oms of diabe tuan and a rando m gluco se >200 mg/dL OR 2) Fasti ng gluco se >= 126 mg/dL on more than one occas ion. Impai red fasti ng gluco se (IFG) , a fasti ng gluco se betwe en 100 and 125 mg/dL , is defin ed by the ADA as a categ ory at risk for futur e diabe tuan and cardi ovasc ular disea se (Pred iabet ). Not Available [facility] [address], [place], [address], 09/20/2023 13:48:06 09/19/19 24 09/19/2023 COMPR EHENS DANAE METAB OLIC PANEL * BUN 25 mg/dL 8-23 high Not Available [facility] [address], [place], [address], 09/20/2023 13:48:06 09/19/19 24 09/19/2023 COMPR EHENS DANAE METAB OLIC PANEL * calcium 9.0 mg/dL 8.8-10 .2 Not Available [facility] [address], [place], [address], 09/20/2023 13:48:06 09/19/19 24 09/19/2023 COMPR EHENS DANAE METAB OLIC PANEL * creatinine 1.11 mg/dL 0.80-1 .30 Not Available [facility] [address], [place], [address], 09/20/2023 13:48:06 09/19/19 24 09/19/2023 COMPR EHENS DANAE METAB OLIC PANEL * sodium 142 mmol/ L 136-14 5 Not Available [facility] [address], [place], [address], 09/20/2023 13:48:06 09/19/19 24 09/19/2023 COMPR EHENS DANAE METAB OLIC PANEL * potassium 4.2 mmol/ L 3.5-5. 1 Not Available [facility] [address], [place], [address], 09/20/2023 13:48:06 09/19/19 24 09/19/2023 COMPR EHENS DANAE METAB OLIC PANEL * chloride 104 mEq/L 98-107 Not Available [facility] [address], [place], [address], 09/20/2023 13:48:06 09/19/19 24 09/19/2023 COMPR EHENS DANAE METAB OLIC PANEL * carbon dioxide 28 mmol/ L 23-30 Not Available [facility] [address], [place], [address], 09/20/2023 13:48:06 09/19/19 24 09/19/2023 COMPR EHENS DANAE METAB OLIC PANEL * total protein 6.9 g/dL 6.2-8. 1 Not Available [facility] [address], [place], [address], 09/20/2023 13:48:06 09/19/19 24 09/19/2023 COMPR EHENS DANAE METAB OLIC PANEL * albumin 3.4 g/dL 3.2-4. 6 Not Available [facility] [address], [place], [address], 09/20/2023 13:48:06 09/19/19 24 09/19/2023 COMPR EHENS DANAE METAB OLIC PANEL * globulin 3.5 g/dL 2.3-3. 4 high Not Available [facility] [address], [place], [address], 09/20/2023 13:48:06 09/19/19 24 09/19/2023 COMPR EHENS DANAE METAB OLIC PANEL * A/G ratio 1.0 g/dL 0.8-2. 0 Not Available [facility] [address], [place], [address], 09/20/2023 13:48:06 09/19/19 24 09/19/2023 COMPR EHENS DANAE METAB OLIC PANEL * alkaline phosphatase 140 U/L 30-120 high Not Available [facility] [address], [place], [address], 09/20/2023 13:48:06 09/19/19 24 09/19/2023 COMPR EHENS DANAE METAB OLIC PANEL * ALT (SGPT) 16 U/L 13-40 Not Available [facility] [address], [place], [address], 09/20/2023 13:48:06 09/19/19 24 09/19/2023 COMPR EHENS DANAE METAB OLIC PANEL * AST (SGOT) 15 U/L 19-48 low Not Available [facility] [address], [place], [address], 09/20/2023 13:48:06 09/19/19 24 09/19/2023 COMPR EHENS DANAE METAB OLIC PANEL * bilirubin, total 0.78 mg/dL 0.20-1 .10 Not Available [facility] [address], [place], [address], 09/20/2023 13:48:06 09/19/19 24 09/19/2023 COMPR EHENS DANAE METAB OLIC PANEL * eGFR >60.00 mL/mi n/1.7 3m2 >60.00 The estim ated glome rular filtr ation rate (eGFR ) was deter mined using the 2020 CKD-E PI creat inine equat ion, which does not consi cody race as a facto r. This equat ion is for indiv idual s aged >=18 years with the resul t adjus srikanth to a body surfa ce area of 1.73 m2. This calcu latio n has been updat ed on labor atory repor ts effec tive 12/18 . Not Available [facility] [address], [place], [address], 09/20/2023 13:48:06 09/19/19 24 09/19/2023 MAGNE SIUM* magnesium 1.60 mg/dL 1.60-2 .40 Not Available [facility] [address], [place], [address], 09/20/2023 13:48:06 06/01/19 25 06/01/2024 XR, chest , 1 view No observ ation record ed. [facility] [address], [place], [address], 06/01/2024 18:15:34 06/01/19 25 06/01/2024 CT, brain , w/o contr ast No observ ation record ed. [facility] [address], [place], [address], 06/02/2024 07:57:07 Result Notes None recorded. Problems Name Problem SNOMED Code Status Onset Date Resolution Date Notes Provider Name and Address Organization Details Recorded Time Dementia with behaviora l disturban ce 52872392128 03 Active 2021 Not Available [facility] 4 09:33:33 Acute injury of kidney 50329698856 146233 Completed 202102/10/2022 Crystal Estelle Kervin MINE ENGINEERING SUPERVISOR-BC, PMHNP-BC [address] [place], [address] , [facility] 2 10:18:54 Type 2 diabetes mellitus without complicat ion 367388219 Completed 202105/30/2022 Crystal LAnupama Kervin, MINE ENGINEERING SUPERVISOR-BC, PMHNP-BC [address] [place], [address] , [facility] 3 07:44:55 Disorder of urinary bladder 26343723 Completed 202102/10/2022 Crystal Estelle Kervin MINE ENGINEERING SUPERVISOR-BC, PMHNP-BC [address] [place], [address] , [facility] 2 10:18:56 Abdominal aortic aneurysm without rupture 97041566 Completed 202102/10/2022 Crystal LAnupama Kervin MINE ENGINEERING SUPERVISOR-BC, PMHNP-BC [address] [place], [address] , [facility] 2 10:18:49 Essential hypertens ion 87430248 Active 2021 Not Available [facility] 4 09:33:33 Mixed hyperlipi demia 783971459 Active 2021 Not Available [facility] 4 09:33:33 Benign prostatic hyperplas ia without outflow obstructi on 618562576 Active 2021 Not Available [facility] 4 09:33:33 Toxic metabolic encephalo tasha 897825267 Completed 202102/10/2022 Crystal Catherine. Kervin, MINE ENGINEERING SUPERVISOR-BC, PMHNP-BC [address], [place], [address] , [facility] 2 10:19:10 Retention of urine 499904523 Completed 202102/10/2022 Crystal Estelle Kervin, MINE ENGINEERING SUPERVISOR-BC, PMHNP-BC [address], [place], [address] , [facility] 2 10:19:05 Muscle weakness 08352914 Completed 202102/10/2022 Crystal Estelle Kervin, MINE ENGINEERING SUPERVISOR-BC, PMHNP-BC [address] [place], [address] , [place] [facility] 2 10:19:02 Unsteady when standing 151182156 Active 2021 Not Available [facility] 4 09:33:33 Dysphagia 94407098 Completed 202102/10/2022 Crystal Estelle Kervin, MINE ENGINEERING SUPERVISOR-BC, PMHNP-BC [address] [place], [address] , [facility] 2 10:18:59 Hypokalem ia 00716531 Active 2021 Not Available [facility] 4 09:33:33 Urinary catheter in situ 202738473 Completed 202106/09/2022 Crystal Estelle Kervin, MINE ENGINEERING SUPERVISOR-BC, PMHNP-BC [address] [place], [address] , [place] [facility] 3 13:08:05 Osteoarth ritis of multiple joints 844150713 Active 2021 Not Available [facility] 4 09:33:33 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 73959434209 9109 Completed 202201/29/2023 Suzette Galeana, MINE ENGINEERING SUPERVISOR-BC, PMHNP-BC [address] [place], [address] , [facility] 3 17:27:19 Hyperglyc emia due to type 2 diabetes mellitus 08970928164 9109 Active 2022 Not Available [facility] 4 09:33:33 Sleep disorder 75673085 Completed 202209/12/2023 Suzette GaleanaAPOORVAP-BC, PMHNP-BC [address], [place], [address] [place] [address] , [facility] 4 19:47:21 Gastroeso phageal reflux disease without esophagit is 216688177 Active 2022 Not Available [facility] 4 09:33:33 Insomnia 520937969 Active 2023 Suzette Galeana MINE ENGINEERING SUPERVISOR-BC, PMHNP-BC [address], [place], [address] [place] [address] , [facility] 4 19:47:25 Problem Notes None recorded. Procedures Surgical History Date Name Laterality Status Provider Name and Address Organization Details Recorded Time cholecystectomy completed Rachell Thao [facility] 10/19/2021 11:19:34 Imaging Results Imaging Date Name Status [facility]Modified by [facility] Details LastModified Time 06/01/2024 XR, chest, 1 view completed [address] [place] [address], [address], 06/01/2024 18:15:34 06/01/2024 CT, brain, w/o contrast completed [address], [place], [address], 06/02/2024 07:57:07 Procedure Notes None recorded. Medical Equipment None Reported. Allergies Allergen ID Allergen Name Allergen Category Reaction Reaction Severity Criticality Documentation Date Start Date Code Code System Note Provider Name and Address Organization Details Recorded Time 5850 carvedilo l medicatio n vomiting Not available Not available 06/29/2022 02966 RxNorm nause a Analyn Giovanni [facility] 3 14:48:33 5851 donepezil medicatio n vomiting Not available Not available 06/29/2022 04555 7 RxNorm Analyn Davila [facility], [facility] 3 14:49:31 5852 Product containin g penicilli n (product) medicatio n rash Not available Not available 06/29/2022 40804 8001 SNOMED Analyn Giovanni [facility] 3 14:49:57 5853 clindamyc in Not available hallucina tions Not available Not available 06/29/2022 2582 RxNorm Analyn Davila [facility] 3 14:52:37 5854 codeine medicatio n hallucina tions Not available Not available 06/29/2022 2670 RxNorm Analyn Davila [facility], [facility] 3 14:52:26 5855 diphenhyd ramine medicatio n hallucina tions Not available Not available 06/29/2022 3498 RxNorm Analyn Davila [facility], [facility] 3 14:52:12 5856 gemfibroz il medicatio n muscle cramps Not available Not available 06/29/2022 4719 RxNorm Analyn Davila null, [facility] 3 14:53:20 5857 promethaz ine medicatio n confusion Not available Not available 06/29/2022 8745 RxNorm Analyn Davila [facility], [facility] 3 14:53:46 5858 verapamil medicatio n muscle cramps Not available Not available 06/29/2022 60929 RxNorm Analyn Davila [facility], [facility] 3 14:54:04 7314 Aricept medicatio n Not available Not available Not available 11/15/2023 00895 6 RxNorm Ana jean baptiste, [facility] 4 09:54:21 7315 Benadryl medicatio n Not available Not available Not available 11/15/202315270 7 RxNorm Ana jean baptiste, [facility] 4 09:54:31 7316 Lopid medicatio n Not available Not available Not available 11/15/202302706 9 RxNorm Ana jean baptiste, [facility] 4 09:54:36 Medications Name Sig Start Date Stop Date Status Note LastModified by Organization Details LastModified Time quetiapine 25 mg tablet 1 TAB BY MOUTH THREE TIMES DAILY W/50MG = 75MG (DX: DEMENTIA W/BEHAVIO RAL DISTURBAN BELLA) 02/01 completed Not Available Not Available Not Available atorvastati n 40 mg tablet TAKE 1 TABLET BY MOUTH AT BEDTIME active Not Available Not Available No t Available acetaminoph en 325 mg tablet Take 2 tablets every 6 hours by oral route as needed. 2022 active Not Available Not Available Not Avai lable loperamide 2 mg capsule 03/25 completed Not Available Not Available Not Available trazodone 50 mg tablet Take 0.5 tablets every day by oral route at bedtime for 90 days. 10/01 completed Not Available Not Available Not Available Risperdal 1 mg tablet Take 1 tablet every day by oral route in the evening for 90 days. completed Not Available Not Available Not Available azithromyci n 250 mg tablet TAKE 2 TABLETS (500 MG) BY ORAL ROUTE ONCE DAILY FOR 1 DAY THEN 1 TABLET (250 MG) BY ORAL ROUTE ONCE DAILY FOR 4 DAYS 11/29 completed Not Available Not Available Not Available fosfomycin tromethamin e 3 gram oral packet MIX AND DRINK 1 PACKET BY MOUTH EVERY 72 HOURS FOR 9 DAYS 11/30 completed Not Available Not Available Not Available fluconazole 150 mg tablet Take 1 tablet every day by oral route for 7 days. 04/12 completed Not Available Not Available Not Available cephalexin 250 mg capsule Take 1 capsule 4 times a day by oral route for 7 days. 12/18 completed Not Available Not Available Not Available ondansetron HCl 4 mg tablet TAKE 1 TABLET BY MOUTH TWICE DAILY NEEDED 10/18 completed Not Available Not Available Not Available dexamethaso ne 6 mg tablet Take 1 tablet every day by oral route for 7 days. 11/29 completed Not Available Not Available Not Available loperamide 2 mg tablet Take 1 tablet every day by oral route as needed for 90 days, for diarrhea. 12/03 completed Not Available Not Available Not Available hydralazine 25 mg tablet TAKE 1 TABLET BY MOUTH THREE TIMES DAILY FOR HIGH BLOOD PRESSURE active Not Available Not Available No t Available potassium chloride ER 10 mEq tablet,exte nded release Take 2 tablets every day by oral route. 04/10 completed Not Available Not Available Not Available melatonin 3 mg tablet Take 2 tablets as needed by oral route at bedtime for 30 days. 05/30 completed Not Available Not Available Not Available ciprofloxac in 500 mg tablet TAKE 1 TABLET BY MOUTH TWICE DAILY FOR 7 DAYS 11/14 completed Not Available Not Available Not Available quetiapine 100 mg tablet Take 1 TAB BY MOUTH TWICE DAILY (AM/HS);O NE-HALF TAB (50MG) BY MOUTH EVERY Afternoon 07/23 completed Not Available Not Available Not Available triamcinolo ne acetonide 0.1 % topical cream APPLY A THIN LAYER TO THE AFFECTED AREA(S) BY TOPICAL ROUTE 2 TIMES PER DAY x 14 days per episode with Clotrimaz ole cream completed Not Available Not Available Not Available glimepiride 1 mg tablet Take 1 tablet every day by oral route for 90 days. active Not Available Not Available No t Available nortriptyli ne 25 mg capsule Take 1 capsule every day by oral route in the evening for 90 days. 10/01 completed Not Available Not Available Not Available potassium chloride ER 20 mEq tablet,exte nded release(par t/cryst) Take 1 tablet every day by oral route for 90 days. active Not Available Not Available No t Available lorazepam 0.5 mg tablet Take 1 tablet orally q PM PRN as a last resort to help relax and sleep x 90 days 2022 completed Not Available Not Available Not Available tamsulosin 0.4 mg capsule Take 2 capsules every day by oral route at bedtime for 90 days. active Not Available Not Available No t Available doxycycline monohydrate 100 mg capsule TAKE 1 CAPSULE BY MOUTH TWICE DAILY FOR 14 DAYS 11/17 completed Not Available Not Available Not Available cephalexin 500 mg capsule TAKE 1 CAPSULE BY MOUTH EVERY 8 HOURS UNTIL ALL TAKEN 10/18 completed Not Available Not Available Not Available pantoprazol e 40 mg tablet,cristela yed release Take 1 tablet twice a day by oral route for 90 days. active Not Available Not Available No t Available divalproex ER 500 mg tablet,exte nded release 24 hr Take 1 tablet every day by oral route at bedtime for 30 days. 11/09 completed Not Available Not Available Not Available cranberry fruit 400 mg capsule TAKE ONE CAPSULE BY MOUTH TWICE DAILY active Not Available Not Available No t Available sertraline 25 mg tablet Take 1 tablet every day by oral route for 7 days. 10/31 completed Not Available Not Available Not Available hydralazine 50 mg tablet ONE-HALF TAB (25 MG) BY MOUTH THREE TIMES DAILY (DX HYPERTENS ION) 12/18 completed Not Available Not Available Not Available hydrochloro thiazide 25 mg tablet TAKE 1 TABLET BY MOUTH DAILY 10/18 completed Not Available Not Available Not Available lorazepam 1 mg tablet TAKE 1 TABLET BY MOUTH DAILY 10/18 completed Not Available Not Available Not Available Depakote Sprinkles 125 mg capsule,del ayed release Take 1 capsule 3 times a day by oral route for 30 days. 11/03 completed Not Available Not Available Not Available levofloxaci n 500 mg tablet TAKE 1 TABLET BY MOUTH EVERY DAY 04/22 completed Not Available Not Available Not Available ketoconazol e 2 % topical cream APPLY SPARINGLY TO THE AFFECTED AREA DAILY FOR 14 DAYS 04/12 completed Not Available Not Available Not Available cefdinir 300 mg capsule TAKE 1 CAPSULE BY MOUTH EVERY 12 HOURS 07/27 completed Not Available Not Available Not Available sertraline 50 mg tablet Take 1 tablet every day by oral route for 30 days. 10/31 completed Not Available Not Available Not Available finasteride 5 mg tablet Take 1 tablet every day by oral route for 90 days. active Not Available Not Available No t Available loratadine 10 mg tablet Take 1 tablet every day by oral route for 7 days. active Not Available Not Available No t Available risperidone 0.5 mg tablet Take 0.5 tablets every 12 hours by oral route for 90 days. active Not Available Not Available No t Available olanzapine 5 mg disintegrat ing tablet Place 1 tablet twice a day by transling ual route as needed. 01/29 completed Not Available Not Available Not Available PreserVisio n AREDS 2,148 mcg-113 mg-45 mg-17.4 mg tablet Take 1 tablet twice a day by oral route with meals for 90 days. 03/25 completed Not Available Not Available Not Available potassium chloride ER 10 mEq tablet,exte nded release(par t/cryst) 2 TABS (20MEQ) BY MOUTH EVERY MORNING (DX: HYPOKALEM IA) (DO NOT CRUSH) 02/01 completed Not Available Not Available Not Available Alcohol Prep Pads Apply 1 pad every day by topical route. 12/18 completed Not Available Not Available Not Available mirtazapine 7.5 mg tablet 1 TAB BY MOUTH AT BEDTIME (DX: DEMENTIA W/ BEHAVIORS ) 08/07 completed Not Available Not Available Not Available Unistik 3 Comfort Device kit 12/18 completed Not Available Not Available Not Available eszopiclone 2 mg tablet Take 0.5 tab to 1 tab q HS x 30 days 08/07 completed Not Available Not Available Not Available Antifungal (clotrimazo le) 1 % topical cream APPLY TO THE AFFECTED AND SURROUNDI NG AREAS OF SKIN BY TOPICAL ROUTE 2 TIMES PER DAY IN THE MORNING AND EVENING continue Clotrimaz ole active Not Available Not Available No t Available quetiapine 50 mg tablet 1 TAB BY MOUTH THREE TIMES DAILY W/25MG = 75MG (DX: DEMENTIA W/BEHAVIO RAL DISTUBANC ES) 02/01 completed Not Available Not Available Not Available olopatadine 0.2 % eye drops INSTILL 1 DROP IN BOTH EYES EVERY DAY 10/18 completed Not Available Not Available Not Available Cholestyram ine Light 4 gram oral powder Take 1 scoop twice a day by oral route for 90 days. active Not Available Not Available No t Available melatonin 10 mg tablet Take 1 tablet every day by oral route at bedtime for 90 days. 2023 active Not Available Not Available Not Avai lable Eliquis 2.5 mg tablet TAKE ONE TABLET BY MOUTH TWICE A DAY active Not Available Not Available No t Available PreserVisio n AREDS-2 250 mg-90 mg-40 mg-1 mg capsule 10/11 completed Not Available Not Available Not Available Farxiga 10 mg tablet Take 1 tablet every day by oral route for 90 days. 2023 completed Not Available Not Available Not Available True Metrix Glucose Test Strip Take 1 strip every day by miscell. route as needed. 2023 active Not Available Not Available Not Avai lable True Metrix Glucose Meter 12/18 completed Not Available Not Available Not Available Belsomra 10 mg tablet TAKE 1 TABLET BY MOUTH DAILY AT BEDTIME active Not Available Not Available No t Available Vitals Date Recorded Body height Heart rate Respiratory rate Oxygen saturation Oxygen saturation in Arterial blood by Pulse oximetry Body temperature Pain severity - 0-10 verbal numeric rating [Score] - Reported Systolic blood pressure Diastolic blood pressure Provider Name and Address Organization Details Last Updated DateTime 4 177.8 cm 70 /min 18 /min 94 % 94 % 97.5 [degF] 0 138 mm[Hg] 82 mm[Hg] [facility] 4 09:49:55 Date Recorded Body height Heart rate Respiratory rate Oxygen saturation Oxygen saturation in Arterial blood by Pulse oximetry Body temperature Pain severity - 0-10 verbal numeric rating [Score] - Reported Systolic blood pressure Diastolic blood pressure Provider Name and Address Organization Details Last Updated DateTime 4 177.8 cm 95 /min 18 /min 97 % 97 % 97 [degF] 0 134 mm[Hg] 82 mm[Hg] [facility] 4 09:08:15 Date Recorded Body height Heart rate Respiratory rate Oxygen saturation Oxygen saturation in Arterial blood by Pulse oximetry Body temperature Pain severity - 0-10 verbal numeric rating [Score] - Reported Systolic blood pressure Diastolic blood pressure Provider Name and Address Organization Details Last Updated DateTime 4 177.8 cm 69 /min 18 /min 93 % 93 % 97.5 [degF] 0 140 mm[Hg] 80 mm[Hg] Fly Farriswell [facility] 4 08:50:33 Date Recorded Body height Oxygen saturation Oxygen saturation in Arterial blood by Pulse oximetry Body temperature Respiratory rate Heart rate Pain severity - 0-10 verbal numeric rating [Score] - Reported Body mass index (BMI) Body weight Systolic blood pressure Diastolic blood pressure Provider Name and Address Organization Details Last Updated DateTime 4 177.8 cm 96 % 96 % 97.7 [degF] 20 /min 60 /min 0 24.7 kg/m2 43139.6 1 g 112 mm[Hg] 78 mm[Hg] Mariama Thao [facility] 4 09:04:06 Date Recorded Body height Oxygen saturation Oxygen saturation in Arterial blood by Pulse oximetry Respiratory rate Heart rate Pain severity - 0-10 verbal numeric rating [Score] - Reported Body temperature Systolic blood pressure Diastolic blood pressure Provider Name and Address Organization Details Last Updated DateTime 4 177.8 cm 98 % 98 % 18 /min 60 /min 0 97.7 [degF] 130 mm[Hg] 78 mm[Hg] Mariama Thao [facility] 4 08:12:28 Social History Question Answer Notes LastModified by Organizat ion Details LastModified Time Tobacco Smoking Status Former Smoker Rachell Thao [facility] 10/19/2021 11:23:25 Do You Have An Advance Directive? Yes [email or web address] Information not available 10/23/2021 What Is Your Level Of Alcohol Consumption? None Information not available 10/19/2021 Are You Currently Sexually Active With Anyone Who Has Traveled (within The Last 12 Weeks) To A Zika-affected Area? No [email or web address] Information not available 10/19/2021 Do You Wear A Helmet When Biking? No [email or web address] Information not available 10/19/2021 Are You Blind Or Do You Have Difficulty Seeing? No [email or web address] Information not available 10/19/2021 What Is Your Level Of Caffeine Consumption? None [email or web address] Information not available 10/19/2021 What Type Of Laboratory Analyst Do You Use? None [email or web address] Information not available 10/19/2021 In The 14 Days Before Symptom Onset, Have You Had Close Contact With A Laboratory-confir med COVID-19 While That Case Was Ill? No [email or web address] Information not available 10/19/2021 In The 14 Days Before Symptom Onset, Have You Had Close Contact With A Person Who Is Under Investigation For COVID-19 While That Person Was Ill? No [email or web address] Information not available 10/19/2021 Have You Been To An Area Known To Be High Risk For COVID-19? No [email or web address] Information not available 10/19/2021 Are You Currently Employed? No [email or web address] Information not available 10/19/2021 Are You Deaf Or Do You Have Serious Difficulty Hearing? Yes Hhearing Aids [email or web address] Information not available 10/19/2021 What Type Of Diet Are You Following? REGULAR [email or web address] Information not available 10/19/2021 Have You Processed Blood Or Body Fluids From An Ebola Virus Disease Patient Without Appropriate PPE? No Information not available 10/19/2021 Do You Reside In Or Have You Traveled To An Area Where Ebola Virus Transmission Is Active? No [email or web address] Information not available 10/19/2021 What Is The Highest Grade Or Level Of School You Have Completed Or The Highest Degree You Have Received? OV48944-5 [email or web address] Information not available 10/19/2021 Have There Been Any Changes To Your Family Or Social Situation? Yes Information no t available 10/19/2021 What Is The Fluoride Status Of Your Home? Unknown [email or web address] Information not available 10/19/2021 When Did You Quit Smoking? 16+yearssin ze ji Information not available 10/08/2022 Are There Any Guns Present In Your Home? No [email or web address] Information not available 10/19/2021 Which Of Your Hands Is Dominant? Right [email or web address] Information not available 10/19/2021 Have You Recently Or Are You Planning To Travel To An Area With Zika Virus? No [email or web address] Information not available 10/19/2021 Do You Use Insect Repellent Routinely? No [email or web address] Information not available 10/19/2021 Do You Have A Medical Power Of Sales Applications Engineer? Yes [email or web address] Information not available 10/23/2021 What Was The Date Of Your Most Recent Tobacco Screening? 12/03/2022 [email or web address] Information not available 12/03/2022 How Many Children Do You Have? 5 [email or web address] Information not available 10/19/2021 Do You Have Any Pets? No [email or web address] Information not available 10/19/2021 What Is Your Relationship Status? [email or web address] Information not available 10/19/2021 Do You Use Your Seat Belt Or Car Seat Routinely? Yes [email or web address] Information not available 10/19/2021 Are You Sexually Active? No [email or web address] Information not available 10/19/2021 Do You Have Smoke And Carbon Monoxide Detectors In Your Home? Yes [email or web address] Information not available 10/19/2021 Are You Passively Exposed To Smoke? No [email or web address] Information no t available 10/19/2021 Do You Feel Stressed (tense, Restless, Nervous, Or Anxious, Or Unable To Sleep At Night)? [id number] [email or web address] Information not available 10/19/2021 Do You Use Any Illicit Or Recreational Drugs? No [email or web address] Information not available 10/19/2021 Do You Use Sunscreen Routinely? No [email or web address] Information not available 10/19/2021 How Many Years Have You Smoked Tobacco? 40 Information not available 10/19/2021 Have You Recently Traveled Abroad? No [email or web address] Information not available 10/19/2021 Are You Currently In School? No Information not available 10/19/2021 Do You Have Any Dietary Restrictions? No [email or web address] Information not available 10/19/2021 Do You Or Have You Ever Used Any Other Forms Of Tobacco Or Nicotine? No [email or web address] Information not available 10/19/2021 Sex: Male Functional Status Question Answer Note LastModified by Organizat ion Details LastModified Time Do you have difficulty walking or climbing stairs? Yes [email or web address] Information not available 10/19/2021 Do you have transportation difficulties? Yes [email or web address] Information not available 10/19/2021 Are you able to walk? YESASSIST Walker [email or web address] Information not available 10/19/2021 Do you have difficulty doing errands alone? Yes [email or web address] Information not available 10/19/2021 Are you able to care for yourself? No [email or web address] Information n ot available 10/19/2021 Do you have difficulty dressing or bathing? Yes [email or web address] Information not available 10/19/2021 What is your exercise level? Occasional [email or web address] Information not available 10/19/2021 Mental Status Question Answer Note LastModified by Organization D etails LastModified Time Do you have difficulty concentrating, remembering or making decisions? Yes [email or web address] Information no t available 10/19/2021 Family History Relationship Description Onset Age of this Age Resolved Age Notes LastModified by Organization Details LastModified Time Father Aneurysm [email or web address] Not availa ble 10/19/2021 11:26:29 Father Malignant tumor of pancreas [email or web address] Not available 01/2022 11:27:00 Mother Anemia [email or web address] Not availabl e 10/19/2021 11:27:08 Mother Hypertensive disorder [email or web address] Not available 01/2022 11:27:20 Brother Visual impairment [email or web address] Not available 01/2022 11:27:33 Brother Diabetes mellitus [email or web address] Not available 01/2022 11:27:41 Brother Atrial fibrillation [email or web address] Not available 0 10/19/2021 11:27:50 Medical History Condition Response Depression Y Anxiety Disorder Y Musculoskeletal Diseases / Disorders Y Cardiac Diseases / Disorders Y Fractures Urinary Retention Y Psychiatric Diseases / Disorders Y Osteoarthritis Y Alzheimers Disease Y Genitourinary Diseases / Disorders () Y Hospitalizations Y Falls Y Ear, Nose, Throat Diseases / Disorders Y Pulmonary Diseases / Disorders Y Electrolyte Imbalances Y Diabetes Y Gastrointestinal Diseases / Disorders Y Myocardial Infarction Y Hyperlipidemia Y Skin Diseases / Disorders Dementia Y Neurological Diseases / Disorders Y Hypertension Y Immunizations Vaccine Type Date Status Note Provider Nam e and Address Organization Details Recorded Time Tdap 1 completed Not Available [facility] 06/07/2023 09:33:33 Tdap 7 completed Not Available [facility] 06/07/2023 09:33:33 pneumococcal, unspecified formulation 9 completed Not Available [facility] 06/07/2023 09:33:34 pneumococcal, unspecified formulation 6 completed Not Available [facility] 06/07/2023 09:33:33 pneumococcal, unspecified formulation 0 completed Not Available [facility] 06/07/2023 09:33:34 influenza, unspecified formulation 1 completed Not Available [facility] 06/07/2023 09:33:33 influenza, unspecified formulation 0 completed Not Available [facility] 06/07/2023 09:33:33 influenza, unspecified formulation 9 completed Not Available [facility] 06/07/2023 09:33:33 Influenza, adjuvanted, quadrivalent, PF 3 completed Not Available [facility] 06/07/2023 09:33:33 Past Encounters Encounter ID Performer Location Encounter Start Date Encounter Closed Date Diagnosis/Indication Diagnosis SNOMED-CT Code Diagnosis ICD10 Code Diagnosis Note [id number] Suzette Galeana, MINE ENGINEERING SUPERVISOR-BC, PMHNP-BC [facility] [address] [place] [address] 10/23/2021 06:42:39 10/23/2021 13:08:50 Type 2 diabetes mellitus without complication 810063913 E11.9 labs to check levels. Essential hypertension 84980430 I10 taking medication s. Labs to eval levels. Mixed hyperlipidemia 267 590462 E78.2 labs to eval levels Hypokalemia 09500501 E87 .6 labs to eval levels. Dementia w ith behavioral disturbance [id number] 103 F03.91 Spoke with Pattie regarding patient's behavior. He has been having increasing behaviors with agitation. Will check urine Urinary ca theter in situ 044601697 Z96.0 Benign pro static hyperplasia without outflow obstruction 001194240 N40.0 Increase Flomax to help BPH. Advance care planning 71 3760518 Z71.89 [id number] Suzette Mccabe SHAUNA Galeana, PMHNP-BC [facility] [address] [place] [address] 11/20/2021 06:47:49 11/20/2021 14:04:31 Dementia with behavioral disturbance [id number] 103 F03.91 Increased Quetiapine to help with behaviors. Did have some improvemen t with the increase from 25 to 50 mg Urinary tr act infectious disease 01972419 N39.0 Finished up ABX and doing better. Hypokalemia 09572337 E87 .6 labs to eval levels. [id number] Suzette Mccabe SHAUNA Galeana, PMHNP-BC [facility] [address] [place] [address] 12/13/2021 06:35:04 12/13/2021 11:13:19 Dementia with behavioral disturbance [id number] 103 F03.91 Moving and will see how Les does in [facility] and will adjust medication accordingl y. Patient is able to be redirected if using a calm manner. He does not respond well to orders.Les likes to wander. He tries to stay active. Will see how adjustment into [facility] goes and will make medication adjustment s. Increased frequency of urination 009359808 R35.0 Waiting for results to r/o infectious process vs prostate vs worsening condition. Adult [facility] th examination 827906247 Z00.01 Advance care planning 71 6885806 Z71.89 [id number] Suzette Mccabe SHAUNA Galeana, PMHNP-BC [facility] [address] [place] [address] 12/25/2021 13:26:32 12/25/2021 20:09:15 Dementia with behavioral disturbance [id number] 103 F03.91 [facility] and doing very well with the current regimen. Continue and will make adjustment s as needed for increasing behaviors. At this time, stable and will continue regimen. Hypocalcemia 5566231 E83 .51 labs to eval low levels [id number] DALTON WellsBC, PMHNP-BC [facility] [address] [place] [address] 01/22/2022 09:36:49 01/22/2022 20:26:06 Dementia with behavioral disturbance [id number] 103 F03.91 has had some increasing behaviors but will obtain urine to evaluate if worsening dementia or infectious process. Altered mental status 41 5520042 R41.82 [id number] Suzette Mccabe YRIS Galeana-FARIBA, PMHNP-BC [facility] [address] [place] [address] 02/12/2022 06:58:15 02/12/2022 15:54:29 Dementia with behavioral disturbance [id number] 103 F03.918 Les does have some intermitte nt behavior changes but has been more directable . He does have good and bad days. If behaviors continued unrelieved by Seroquel will look at [place] roman. and I discussed such about possible changes. She v/u. Adult heal th examination 087468194 Z00.01 Essential hypertension 03819642 I10 taking medication s. Labs to eval levels. Hypokalemia 82409912 E87 .6 taking medication s. Labs to eval levels. Type 2 juan manuel betes mellitus without complication 375813058 E11.9 labs to check levels. [id number] Suzette Estelle SHAUNA Galeana, PMHNP-BC [facility] [address] [place] [address] 03/12/2022 07:00:35 03/13/2022 14:55:49 Dementia with behavioral disturbance 2969980971 103 F03.918 Doing much better with behaviors. Continue medication . Will make adjustment s as needed. Type 2 juan manuel betes mellitus without complication 097838237 E11.9 A1C elevated and started Farxiga for DM and CKD. Chronic ki dney disease stage 3 758625919 N18.30 Kidney worsening. Started Farxiga for [place] progressio n. [id number] Suzette Mccabe YRIS Galeana-, PMHNP-BC [facility] [address] [place] [address] 04/09/2022 15:02:50 04/10/2022 10:36:10 Dementia with behavioral disturbance 6986343463 103 F03.918 Doing much better with behaviors. Continue medication . Will make adjustment s as needed. Chronic ki dney disease stage 3 830369446 N18.30 Tolerating Farxiag. No new sxs. Will be checking labs at next interval. Benign pro static hyperplasia without outflow obstruction 961721137 N40.0 med refill Insomnia 569249039 G47.0 0 med refill Hypokalemia 46154735 E87 .6 med refill Benign pro static hyperplasia 794414776 N40.0 med refill Essential hypertension 62564979 I10 med refill Gastroesop hageal reflux disease without esophagitis 817929048 K21.9 med refill Osteoarthr itis of multiple joints 297322350 M15.9 Discussed with Pattie about OT for helping with his hands which Les stated no thanks and Pattie asked for defer at this time. Will explore again in future. [id number] uSzette Galeana [facility], [facility] [address] [place] [address] 04/30/2022 06:58:46 04/30/2022 18:29:47 Dementia with behavioral disturbance 2932620286 103 F03.918 Doing much better with behaviors. Continue medication . Will make adjustment s as needed. 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 [id number] Suzette Galeana [facility], [facility] [address] [place] [address] 05/29/2022 06:58:39 05/30/2022 12:08:29 Dementia with behavioral disturbance 6983163295 103 F03.918 Doing much better with behaviors. Continue medication . Will make adjustment s as needed.Sle ep has become quite the issue. 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 Hyperglyce edilson due to type 2 diabetes mellitus 7870424714 40854 E11.65 taking medication s. labs to eval levels. Essential hypertension 41415880 I10 taking medication s. Labs to eval levels. Hypokalemia 41608909 E87 .6 taking medication s. Labs to eval levels. [id number] Suzette Galeana [facility], [facility] [address] [place] [address] 06/29/2022 14:34:12 06/30/2022 09:20:57 Dementia with behavioral disturbance 1510942363 103 F03.918 Urinary tr act infectious disease 85148353 N39.0 had received IV ABX in ER and sent home on oral. Not having behaviors. Continue medication and will monitor. [id number] Suzette Galeana [facility], [facility] [address] [place] [address] 07/23/2022 06:59:29 07/23/2022 19:06:03 Dementia with behavioral disturbance 8718956299 103 F03.918 Urinary tr act infectious disease 90864231 N39.0 Sleep disorder 29511916 G47.9 [id number] Suzette Galeana [facility], [facility] Telemedic ine [address] [place] [address] 08/07/2022 20:37:49 08/08/2022 04:57:46 Dementia with behavioral disturbance 0214367746 103 F03.918 Behaviors are better but staff concerned with the little sleep that he is going to end up having another agitated episode and get combative. urine ordered to recheck s/p UTI. Given his increasing combative and aggression when he has UTI. Sleep disorder 55184459 G47.9 Will try Nortriptyl ine for sleep and see how Les does with such. Stopped Mirtazapin e and Lunesta. Lunesta is not helping him with sleep.Willem ng PRN dose of Ativan q PM if medication is not getting him to relax and sleep. Can then try Ativan as last resort. [id number] Suzette Galeana [facility], [facility] [address] [place] [address] 08/20/2022 05:51:12 08/20/2022 19:02:36 Sleep disorder 69949618 G47.9 Nortriptyl ine for sleep.Geri tonin for sleep. Dementia w ith behavioral disturbance 5776119173 103 F03.918 Risperidon e 1 mg BID for behaviorsZ yprexa BID PRNAtivan 0.5 mg q HS PRN to help relax. Benign pro static hyperplasia without outflow obstruction 811521175 N40.0 Hypokalemia 48850235 E87 .6 Gastroesop hageal reflux disease without esophagitis 667317038 K21.9 [id number] YRIS Wells-FARIBA, PMHNP-BC [facility] [address] [place] [address] 09/17/2022 06:45:12 09/17/2022 20:47:59 Sleep disorder 44789017 G47.9 Nortriptyl ine for sleep.Geri tonin for sleep. Dementia w ith behavioral disturbance 1930336900 103 F03.918 Worsening cognition. Try to incorporat e activities that provide mental stimulatio n. Reorient. Redirect. Supportive Care. Multiple medication changes have occurred d/t increasing behaviors combined with combativen ess. He has done much better on this regimen. He has not had any further escalation s. Hyperglyce edilson due to type 2 diabetes mellitus 6319467542 48192 E11.65 taking medication s. labs to eval levels. Essential hypertension 78654825 I10 taking medication s. Labs to eval levels. Hypokalemia 62295335 E87 .6 taking medication s. Labs to eval levels. [id number] DALTON Wells, PMHNP-BC [facility] [address] [place] [address] 12/03/2022 07:21:05 12/03/2022 09:48:34 Neck pain 76405072 M54.2 Low back pain 552990196 M54.50 Bleeding from nose 78679 6005 R04.0 Recurrent falls 57955547 2 R29.6 [id number] SHAUNA Wells, PMHNP-FARIBA [facility] [address] [place] [address] 12/31/2022 08:39:41 12/31/2022 19:23:51 Dementia with behavioral disturbance 3819468335 103 F03.918 [id number] SHAUNA Wells, PMHNP-BC [facility] [address] [place] [address] 01/28/2023 08:14:16 01/29/2023 19:36:39 Dementia with behavioral disturbance 3570281729 103 F03.918 Advance care planning 71 4288596 Z71.89 Sleep disorder 49193861 G47.9 History of urinary tract infection 4544617539 107 Z87.440 Hyperglyce edilson due to type 2 diabetes mellitus 5497525334 19410 E11.65 accuchecks are fine to do daily.Stop Zyprexa given the adverse reactions. Said event can increase risks of NMS.The syndrome is characteri zed by high fever, stiffness of the muscles, altered mental status (paranoid behavior), and autonomic dysfunctio n. Autonomic dysfunctio n alludes to defective operations of the components of the involuntar y (autonomic ) nervous system, leading to wide swings of blood pressure, excessive sweating and excessive secretion of saliva. Urine ordered to be done to rule out UTI Prophylaxi s ABX for UTI is not recommende d because of the organisms and and often the medication will not cover everything while also increasing possible ABX resistance and C.Diff [id number] YRIS Wells-BC, PMHNP-BC [facility] [address] [place] [address] 02/25/2023 07:18:05 02/25/2023 15:04:15 Dementia with behavioral disturbance 8630377043 103 F03.918 Candidal balanitis 95149 007 B37.42 Diarrhea 26360143 R19.7 [id number] YRIS Wells-FARIBA, PMHNP-BC [facility] [address] [place] [address] 03/25/2023 08:31:26 03/25/2023 18:17:17 Dementia with behavioral disturbance 6957324587 103 F03.918 Hyperglyce edilson due to type 2 diabetes mellitus 0345074478 03435 E11.65 taking medication s. Labs to eval levels. Essential hypertension 82832985 I10 taking medication s. Labs to eval levels. [id number] YRIS Wells-FARIBA, PMHNP-BC [facility] [address] [place] [address] 04/22/2023 07:03:41 04/22/2023 18:09:40 Dementia with behavioral disturbance 1890593627 103 F03.918 Candidal balanitis 05196 007 B37.42 [id number] Suzette Mccabe Kervin [facility], [facility] [address] [place] [address] 05/21/2023 08:30:09 05/22/2023 16:47:14 Dementia with behavioral disturbance 7108880861 103 F03.918 Candidal balanitis 73434 007 B37.42 Med refill Benign pro static hyperplasia without outflow obstruction 091960285 N40.0 Med refill Essential hypertension 42131769 I10 Med refill Sleep disorder 69410181 G47.9 Gastroesop hageal reflux disease without esophagitis 133597714 K21.9 Med refill Hypokalemia 51325288 E87 .6 Med refill Diarrhea 80589164 R19.7 Fall 9577190 W19.XXXA Type 2 juan manuel betes mellitus without complication 387751919 E11.9 med refill [id number] Suzette AlexanderAnupama Galeana [facility], [facility] [address] [place] [address] 06/18/2023 08:35:12 06/20/2023 14:22:28 Dementia with behavioral disturbance 6509734116 103 F03.918 Worsening cognition. Try to incorporat e activities that provide mental stimulatio n. Reorient. Redirect. Supportive Care. Diarrhea 27579145 R19.7 waiting for stool culture results Essential hypertension 63864375 I10 taking medication s. labs to eval levels. Hypokalemia 55501060 E87 .6 taking medication s. labs to eval levels. Hyperglyce edilson due to type 2 diabetes mellitus 3633419812 55312 E11.65 taking medication s. Labs to eval levels. [id number] Suzette Galeana [facility], [facility] [address] [place] [address] 07/10/2023 08:46:31 07/11/2023 17:27:53 Dementia with behavioral disturbance 1710420985 103 F03.918 Hyperglyce edilson due to type 2 diabetes mellitus 8194019753 19109 E11.65 [id number] Suzette Galeana [employer] ENGINEER[employer]PER[employer]-BC, PMHNP-BC [facility] [address] [place] [address] 4 08/07/2023 07:29:48 08/07/2023 15:07:34 Dementia with behavioral disturbance 2063791012 103 F03.918 Insomnia 748508044 G47.0 0 [id number] Suzette Galeana [employer] ENGINEERING SUPERVISOR-BC, PMHNP-BC [facility] [address] [place] [address] 4 09/11/2023 08:01:22 09/12/2023 22:04:22 Dementia with behavioral disturbance 9429987200 103 F03.918 Insomnia 856480194 G47.0 0 Essential hypertension 32293030 I10 Hyperglyce edilson due to type 2 diabetes mellitus 7412316125 58319 E11.65 [id number] Suzette Galeana [employer]INE ENGINEERING SUPERVISOR-BC, PMHNP-BC [facility] [address] [place] [address] 4 10/02/2023 08:08:57 10/03/2023 09:45:27 Dementia with behavioral disturbance 4010336101 103 F03.918 Insomnia 838051771 G47.0 0 Thrombocyt openic disorder 943883234 D69.6 [id number] Suzette Galeana [employer]INE ENGINEERING SUPERVISOR-BC, PMHNP-BC [facility] [address] [address] 4 10/30/2023 07:44:19 10/30/2023 23:15:36 Dementia with behavioral disturbance 7808293745 103 F03.918 Insomnia 865268366 G47.0 0 [id number] Suzette Galeana [employer]INE ENGINEERING SUPERVISOR-BC, PMHNP-BC [facility] [address] [address] 4 12/04/2023 08:10:13 12/04/2023 22:48:42 Dementia with behavioral disturbance 3064649773 103 F03.918 Insomnia 928446694 G47.0 0 Benign pro static hyperplasia without outflow obstruction 884458427 N40.0 Med refill Hyperglyce edilson due to type 2 diabetes mellitus 1568519365 23455 E11.65 Essential hypertension 94964323 I10 Sleep disorder 43843057 G47.9 Gastroesop hageal reflux disease without esophagitis 899036873 K21.9 Med refill Hypokalemia 66603574 E87 .6 taking medication s. labs to eval levels. Chronic diarrhea 4167867 09 K52.9 Health Concerns Section Related Observation LastModified by Organization Detai ls LastModified Time None Recorded Concern Status LastModified by Organization Details LastModified Time None Recorded Advance Directives Directive Y: Payers Encounter Date Sequence Insurance Name Policy Number Policy Treviño Covered Member ID Treviño Member ID Guarantor Name 08/07/2023 1 [place] Mckenna Membreno Busch [id number] Pattie Busch 08/07/2023 2 FOR LIFE () Mckenna Busch [id number] Pattie Busch 09/11/2023 1 [place] Mckenna Membreno Busch [id number] Pattie Busch 09/11/2023 2 FOR LIFE () Mckenna Busch [id number] Pattie Busch 10/02/2023 1 [place] Mckenna F Busch [id number] Pattie Busch 10/02/2023 2 FOR LIFE () Mckenna Busch [id number] Pattie Busch 10/30/2023 1 [place] Mckenna F Busch [id number] Pattie Busch 10/30/2023 2 FOR LIFE () Mckenna Busch [id number] Pattie Busch 12/04/2023 1 [place] Mckenna Membreno Busch [id number] Pattie Busch 12/04/2023 2 FOR LIFE () Mckenna Busch [id number] Pattie Busch Notes Date Note Type Note Provider Name and Address Organization Details Recorded Time 08/07/2023 text/html DementiaReported bystaff.Quality:short term memory loss; inability to learn or remember new information; forgetting names or everyday words; difficulty communicating; disoriented time, self, or place; confabulation; inability to reason; difficulty with coordination Severity:moderate Context:difficulty planning or organizing; sleep disturbance; personality changes Associated Symptoms:no depression; no paranoia; no anxiety; recent falls;incontinence;wan dering;sleep disturbances SHAUNA Wells, [facility] [address] [place], [address], [facility] 08/07/2023 10:02:05 09/11/2023 text/html Mckenna presents for a follow-up visit, reporting a notable progression in dementia with worsening symptoms. Sleep has become sporadic, and he is experiencing increased periods of sleep. Facility staff reports that the patient requires more queuing. The patient denies any symptoms related to high blood pressure, such as chest pain, shortness of breath, dizziness, or visual disturbances. The patient has diabetes and is currently on oral medications but is not following a diabetic diet. There have been no reported behavioral issues. SHAUNA Wells, OLIVIAFARIBA [address] [place], [address], [facility] 09/12/2023 20:59:01 10/02/2023 text/html Facility staff r eports seeing Les experiencing increased sleepiness, sleeping throughout the night and being difficult to wake during the day. Dementia is progressing, leading to a mix-up of day and night schedules. His cognitive function is declining due to the worsening dementia, although he currently does not exhibit agitation or aggression. Recent A1C level was 7.4, indicating a concern for his diabetes management, which might be influenced by his medication. also discusses coordination issues, such as drooling while eating. Noted on labs with persistently low platelet count, both of which could be side effects of risperidone. Mckenna is looking forward to a family visit scheduled for the and plans to have his labs checked again around December to monitor any changes following the adjustment in his risperidone dosage. SHAUNA Wells, [facility] [address] [place], [address], [facility] 10/02/2023 20:45:25 10/30/2023 text/html Mckenna is here f or a follow-up visit. Facility staff report that since the gradual dose reduction of risperidone, Mckenna has had an increase with exit-seeking behaviors and agitation, despite having completed treatment for a urinary tract infection. He remains highly confused throughout the day. However, it is noted that Mckenna was pleasant during the morning of the visit. His insomnia has improved, and intermittently sleeping better on the current regimen. SHAUNA Wells, [facility]- [address] [place], [address], [facility] 10/30/2023 19:57:12 12/04/2023 text/html Mckenna is here f or a follow-up visit. Facility staff report that since the gradual dose reduction of risperidone, Mckenna has had an increase with exit-seeking behaviors and agitation, despite having completed treatment for a urinary tract infection. Dosage changed and doing much better. He remains highly confused throughout the day. However, it is noted that Mckenna was pleasant during the morning of the visit. His sleep regimen varies and intermittently sleeping better on the current regimen. Diarrhea often continues to be problematic. SHAUNA Wells, [facility] [address] [place], [address], [facility] 12/04/2023 13:25:54
--- OUTSIDE RECORDS SUMMARY | 2024-08-02 10:14 | XMS_ITS | Encounter Summary ---
Author Organization [facility] Address [address] [place] [address] Care Team Providers Care Business Management Professor Name Role Phone Ajay Abdi MD Primary Care Provider Unavail able Terry Koch MD Unavailable [phone] Vinnie Lamb MD Unavailable Fransico Rangel DO Primary Care Provider [phone] Suzette Galeana [facility] Primary Care Provider [phone] Encounter Details Date Type Department Care Team (Latest Contact Info) Description 03/18/2018 Abstract [facility] , Kala Gamboa MD Social History Tobacco Use Types Packs/Day Years Used Date Smoking Tobacco: Former Cigarettes Q uit: 2013 Smokeless Tobacco: Never Alcohol Use Standard Drinks/Week Comments Yes 0 (1 standard drink = 0.6 oz pur e alcohol) wine/beer Sex and Gender Information Value Date Recorded Sex Assigned at Not on file Legal Sex Male 7:35 PM CDT Gender Identity Not on file Sexual Orientation Not on file Occupation Industry Job Start Date Job End Date Not on file Not on file Not on file Not on file documented as of this encounter Plan of Treatment Not on file documented as of this encounter Visit Diagnoses Not on filedocumented in this encounter Additional Health Concerns Infection Onset Date Last Indicated Resolved Time COVID-19 Rule Out 08/24/2021 08/24/2021 08/25/2021 8:39 AM CDT documented as of this encounter Care Teams Business Management Professor Relationship Specialty Start Date End Date Ajay Abdi MD PCP - General FAMILY PRACTICE 07/11/17 05/07/21 Fransico Rangel DO [address] [place] [address] PCP - General FAMILY PRACTICE 05/08/21 11/09/21 Suzette Galeana, [facility] [address] [place] [address] PCP - General NURSE PRACTITIONER 11/10/21 Terry [facility] [address] [place] [address] [place] Fundraising Specialist CARDIOVASCULAR DISEASE 08/15/17 Vinnie Lamb MD [address] [facility] [address] [place], [place] [address] EP Fundraising Specialist CLINICAL CARDIAC ELECTROPHYSIOLOGY 10/15/17 documented as of this encounter
--- OUTSIDE RECORDS SUMMARY | 2024-08-02 10:14 | XMS_ITS | Encounter Summary ---
Author Organization [facility] Address [address] [place] [address] Care Team Providers Care Make Up Man Name Role Phone Ajay Abdi MD Primary Care Provider Unavail able Terry Koch MD Unavailable [phone] Vinnie Lamb MD Unavailable Fransico Rangel DO Primary Care Provider [phone] Suzette Galeana [facility] Primary Care Provider [phone] Encounter Details Date Type Department Care Team (Late st Contact Info) Description 10/15/2017 [facility] at [address] [address] Rufus Arenas MA Social History Tobacco Use Types Packs/Day Years [...] on file documented as of this encounter Procedures Procedure Name Priority Date/Time Associated Diagnosis Comments HEMOGLOBIN, GLYCOSYLATED Routine 09/18/2022 COMPREHENSIVE METABOLIC PANEL Routine 09/18/2022 CBC, MANUAL DIFF Routine 09/18/2022 MAGNESIUM Routine 09/18/2022 HEMOGLOBIN, GLYCOSYLATED Routine 06/01/2022 COMPREHENSIVE METABOLIC PANEL Routine 06/01/2022 CBC, MANUAL DIFF Routine 06/01/2022 MAGNESIUM Routine 06/01/2022 CBC (OUTSIDE LAB) Routine 03/04/2018 COMPREHENSIVE METABOLIC PANEL Routine 02/05/2018 LIPID PANEL Routine 02/05/2018 BASIC METABOLIC PANEL Routine 11/27/2017 COMPREHENSIVE METABOLIC PANEL Routine 04/25/2017 LIPID PANEL Routine 04/25/2017 HEMOGLOBIN, GLYCOSYLATED Routine 04/25/2017 documented in this encounter Results * COMPREHENSIVE METABOLIC PANEL (09/18/2022) SODIUM S/P/B 142 GLUCOSE 129 mg/dL AST 11 BUN 27 CREATININE S/P/B 1.12 0.7 - 1.3 CALCIUM S/P/B 8.6 POTASSIUM S/P/B 4.3 CHLORIDE S/P/B 105 ALT 14 GFR ESTIMATE >60 Narrative Resulting Agency Comment us Default History Genericprovider LABORATORY Final Result * CBC, MANUAL DIFF (09/18/2022) WBC 6.54 HGB 12.4 HCT 38.7 PLT 110 Narrative Resulting Agency Comment us Default History Genericprovider LABORATORY Final Result * HEMOGLOBIN, GLYCOSYLATED (09/18/2022) HGB A1C 6.7 % Narrative Resulting Agency Comment Default History Genericprovider LABORATORY Final Result * MAGNESIUM (09/18/2022) Pathologist [facility] MAGNESIUM 1.90 Narrative Resulting Agency Comment Default History Genericprovider LABORATORY Final Result * COMPREHENSIVE METABOLIC PANEL (06/01/2022) Pathologist [facility] SODIUM S/P/B 144 GLUCOSE 145 mg/dL AST 11 BUN 21 CREATININE S/P/B 1.20 0.7 - 1.3 CALCIUM S/P/B 9.0 POTASSIUM S/P/B 4.3 CHLORIDE S/P/B 107 ALT 13 GFR ESTIMATE 9.0 Narrative Resulting Agency Comment Result [facility] History Genericprovider LABORATORY Final Result * CBC, MANUAL DIFF (06/01/2022) Pathologist [facility] WBC 6.77 HGB 13.7 HCT 42.3 PLT 106 Narrative Resulting Agency Comment Result [facility] History Genericprovider LABORATORY Final Result * HEMOGLOBIN, GLYCOSYLATED (06/01/2022) Pathologist [facility] HGB A1C 6.8 % Narrative Resulting Agency Comment Result [facility] History Genericprovider LABORATORY Final Result * MAGNESIUM (06/01/2022) MAGNESIUM 1.90 Narrative Resulting Agency Comment Default History Genericprovider LABORATORY Final Result * CBC (OUTSIDE LAB) (03/04/2018) Pathologist [facility] WBC 6.0 HGB 15.1 HCT 46.9 PLT 137 03/04/2018 us Doc [facility]-OUTSIDE/ABSTRACTED Final Result * LIPID PANEL (02/05/2018) Pathologist [facility] CHOLESTEROL 111 HDL 33 TRIGLYCERIDES 97 LDL (CALCULATED) 59 02/05/2018 us Doc [facility] Final Result * COMPREHENSIVE METABOLIC PANEL (02/05/2018) SODIUM S/P/B 143 POTASSIUM S/P/B 4.2 CO2 27 CHLORIDE S/P/B 106 GLUCOSE 118 mg/dL CALCIUM S/P/B 9.0 BUN 17 CREATININE S/P/B 1.02 0.7 - 1.3 EGFR AFR. AMER. 90.1 EGFR NON-AFR. AMER. 74.5 <=90 ALKALINE PHOSPHATASE S/P/B 58 ALT 12 AST 18 BILIRUBIN TOTAL S/P/B 0.75 ALBUMIN S/P/B 4.3 3.5 - 5.0 TOTAL PROTEIN S/P/B 6.1 GLOBULIN 1.8 02/05/2018 us Doc [facility] Final Result * BASIC METABOLIC PANEL (11/27/2017) Pathologist [facility] SODIUM S/P/B 139 POTASSIUM S/P/B 3.8 CO2 24 CHLORIDE S/P/B 102 GLUCOSE 165 mg/dL CALCIUM S/P/B 9.2 BUN 15 CREATININE S/P/B 1.10 0.7 - 1.3 EGFR AFR. AMER. 82.6 EGFR NON-AFR. AMER. 68.3 <=90 11/27/2017 us Doc [facility] Final Result * HEMOGLOBIN, GLYCOSYLATED (04/25/2017) Pathologist [facility] HGB A1C 7.1 04/25/2017 us Doc [facility] Final Result * LIPID PANEL (04/25/2017) Pathologist [facility] CHOLESTEROL 120 HDL 34 TRIGLYCERIDES 131 LDL (CALCULATED) 60 04/25/2017 us Doc [facility] Final Result * COMPREHENSIVE METABOLIC PANEL (04/25/2017) SODIUM S/P/B 141 POTASSIUM S/P/B 3.9 CO2 25 CHLORIDE S/P/B 106 GLUCOSE 189 mg/dL CALCIUM S/P/B 9.1 BUN 14 CREATININE S/P/B 0.99 0.7 - 1.3 EGFR AFR. AMER. 93.5 EGFR NON-AFR. AMER. 77.3 <=90 ALKALINE PHOSPHATASE S/P/B 81 ALT 13 AST 20 BILIRUBIN TOTAL S/P/B 0.58 ALBUMIN S/P/B 4.4 3.5 - 5.0 TOTAL PROTEIN S/P/B 6.5 GLOBULIN 2.1 04/25/2017 us Doc [facility] Final Result documented in this encounter Visit Diagnoses Not on filedocumented in this encounter Additional Health Concerns Infection Onset Date Last Indicated Resolved Time COVID-19 Rule Out 08/24/2021 08/24/2021 08/25/2021 8:39 AM CDT documented as of this encounter Care Teams Make Up Man Relationship Specialty Start Date End Date Ajay Abdi MD PCP - General FAMILY PRACTICE 07/11/17 05/07/21 Fransico Rangel DO [facility] [address] [place] [address] PCP - General FAMILY PRACTICE 05/08/21 11/09/21 Suzette Galeana, COMMUNITY SERVICE OFFICER COORDINATOR- [address] [place] [address] PCP - General NURSE PRACTITIONER 11/10/21 Terry Koch MD [address] [address] [place] [facility] CARDIOVASCULAR DISEASE 08/15/17 Vinnie Lamb MD [facility] [address] [place] [address] [facility] CLINICAL CARDIAC ELECTROPHYSIOLOGY 10/15/17 documented as of this encounter
--- OUTSIDE RECORDS SUMMARY | 2024-08-02 10:14 | XMS_ITS | Referral Summary ---
Author Organization [facility] Address [address] [place] [address] Care Team Providers Care Interactive Developer Name Role Phone Terry Ramos DO Primary Care Provider [phone] Allergies Active Allergy Reactions Criticality Noted Date Comments Donepezil Nausea & Vomiting Low 08/26/2018 Diphenhydramine Anxiety Low 08/26/2018 Carvedilol Diarrhea Low 08/26/2018 Clindamycin Diarrhea Low 08/26/2018 Codeine Hallucinations Medium 08/26/2018 Gemfibrozil Muscle pain Medium 08/26/2018 Penicillin G Rash Medium 08/26/2018 Patient tolerated ceftriaxone during previous visit- Juan Pablo Bains, ToshiaD 12/13/21 Promethazine Delusions Medium 08/26/2018 Verapamil Other (See comments) Low 08/26/2018 Constipation Medications tamsulosin (FLOMAX) 0.4 mg extended release capsule Take 0.8 mg by mouth daily Active pantoprazole DR (PROTONIX) 40 mg EC tablet Take 40 mg by mouth 2 (two) times a day Active polyethylene glycol (MIRALAX) 17 gram packetIndications:c onstipation Take 17 g by mouth daily Active hydrALAZINE (APRESOLINE) 25 mg tabletIndications:h ypertension Take 25 mg by mouth 3 (three) times a day Active acetaminophen (TYLENOL) 650 mg suppository Insert 650 mg into the rectum every 4 (four) hours as needed for pain Active ondansetron ODT (ZOFRAN-ODT) 4 mg disintegrating tablet Take 4 mg by mouth every 12 (twelve) hours as needed for nausea or vomiting Active QUEtiapine (SEROquel) 25 mg tabletIndications:I nsomnia associated agitated behavior Take 2 tablets (50 mg total) by mouth daily Take 25mg in the morning and take 50mg at night 45 tablet 2 Active Alcohol Prep Pads pads, medicated 2 Active True Metrix Glucose Test Strip strip 2 Active True Metrix Glucose Meter misc 2 Active mirtazapine (REMERON) 7.5 mg tablet Take 1 tablet by mouth 2 Active potassium chloride ER (KLOR-CON) 10 mEq CR tablet Take 2 tablets by mouth daily 2 Active cephalexin (KEFLEX) 250 mg capsule Take 1 capsule (250 mg total) by mouth 4 (four) times a day 28 capsule 2 Active finasteride (PROSCAR) 5 mg tablet 1 TAB BY MOUTH EVERY MORNING (DX: BPH) 30 tablet 10 2 Active Active Problems Problem Noted Date Diagnosed Date Osteoarthritis 11/21/2021 GAL (acute kidney injury) 10/02/2021 Assessment & Plan (10/02/2021 10:51 AM CDT): Presume due to diarrhea and early dehydration, BUN normal, IV placed by me today on exam and pt given 1L NS bolus. Nursing to monitor urine output, continue to encourage oral nutrition and hydration, repeat BMP on Saturday. Acute diarrhea 09/26/2021 Assessment & Plan (10/04/2021 3:27 PM CDT): Nursing advised again to please send stool sample for comprehensive panel and C diff, encourage oral hydration, consider continuous IV fluids although patient is agitated with IV due to baseline cognitive impairment Assessment & Plan (10/02/2021 10:55 AM CDT): Cholestyramine to BID, PRN loperamide, continue to encourage oral hydration and await stool cx, joaquina D/C'd Assessment & Plan (09/28/2021 9:14 AM CDT): Await results of comprehensive stool panel, encourage oral hydration, may continue loperamide, will add daily cholestyramine Assessment & Plan (09/26/2021 6:59 PM CDT): Send sample for comprehensive culture, encourage oral hydration, will add cholestyramine Acute on chronic blood loss anemia 09/19/2021 Assessment & Plan (09/19/2021 12:50 PM CDT): Likely secondary to recent surgery, hematuria. Start on ferrous sulfate liquid daily. Monitor H&H Cognitive communication deficit 09/13/2021 Dysphagia, oropharyngeal phase 09/13/2021 Muscle weakness (generalized) 09/13/2021 Other neuromuscular dysfunction of bladder 09/13 Presence of other vascular implants and grafts 0 09/13/2021 Unsteadiness on feet 09/13/2021 DM (diabetes mellitus) 09/06/2021 DVT prophylaxis 09/06/2021 Acute cystitis with hematuria 09/06/2021 Acute renal failure superimp osed on stage 2 chronic kidney disease 09/05/2021 Assessment & Plan (09/06/2021 12:47 PM CDT): Cr increased from 3.0 to 3.5 besides on cont IVF. requesting to send pt to the ER for more testing . Assessment & Plan (09/05/2021 3:26 PM CDT): Cr up to 3.0 today. Not eating or drinking. Unsure if received IVF continuously thru the weekend. Per MAR Nacl began 09/01 at 1209 & no other bag scanned thru weekend. does not believe he got IVF thru weekend either. Have reviewed causes with elevated Cr. Repeat labs in am, if continues to trend up discussed with sending to ED vs staying at [facility]. Provider to f/u in am with patient & . Acute cystitis without hematuria 09/04/2021 Assessment & Plan (09/06/2021 12:46 PM CDT): On rocephin. Urine still dark as pt pulled on the catheter last night Assessment & Plan (09/05/2021 3:27 PM CDT): Continue on Rocephin, mild improvement in alertness. Able to participate in tx. Hematuria/Dark cloudy present in galaviz today, likely from pulling. AC d/c. Monitor. Cr trending up, see GAL. Assessment & Plan (09/04/2021 3:52 PM CDT): UCx positive for Proteus more than 100 K. on ceftriaxone 2 g IV from 09/01- 09/08/21, IV fluid. Galaviz in place. Monitor labs Status post fall 08/30/2021 Assessment & Plan (08/30/2021 5:37 PM CDT): Patient was confused and restless last night, had a fall. Sustained no injury. Will order safety floor mats. DC Lovenox as increased bleeding risk due to fall Status post abdominal aortic aneurysm (AAA) repa ir 08/29/2021 Assessment & Plan (09/28/2021 9:19 AM CDT): Patient has fully recovered from procedure, surgical sites are healed, follow-up with Dr. Simons as indicated Assessment & Plan (09/26/2021 6:55 PM CDT): Groin incisions are clean and dry since kayleigh have been removed, may wash daily with soap and water and leave open to air. Follow-up with Dr. Simons as scheduled. Lovenox may be discontinued. Assessment & Plan (09/19/2021 12:49 PM CDT): Pt underwent endovascular aneurysm repair electively with Medtronic endurant stent graft and Pauline-fx endoanchors per Dr. Simons on 08/21. Tolerated procedure well. Pain ngx with Tylenol 650 mg q6 prn , norco prn.Wound care. F/u Vas on 09/21/21, kayleigh to be removed Assessment & Plan (09/19/2021 11:46 AM CDT): Healing well postoperatively, Dr. Simons to remove kayleigh this week at follow-up appointment, blood pressure stable, no signs of bleeding or infection Assessment & Plan (09/17/2021 6:37 PM CDT): Surgical sites are clean and dry, patient is doing well from a surgical perspective, all issues now seem to be postoperative complications, f/u w MD Simons for staple removal, continue to monitor incisions daily and cover with dry dressing, there is no obvious pain, patient is unable to report Assessment & Plan (09/01/2021 3:08 PM CDT): Incision site stable. Dressings c/d/i. Assessment & Plan (08/29/2021 11:02 AM CDT): S/p repair 08/[address] Simons. Continue Tyl q6h carina + Eland PRN. If continues to have increased altered mental status consider d/c Eland. Continue wound care. Will need f/u & suture removal order. Assessment & Plan (08/29/2021 5:39 AM CDT): Pt underwent endovascular aneurysm repair electively with Medtronic endurant stent graft and Pauline-fx endoanchors per Dr. Simons on 08/21. Tolerated procedure well. Pain ngx with Tylenol 650 mg q6, norco prn.Wound care. F/u Vas in 2 wks, no appt has yet set up. Essential (primary) hypertension 08/29/2021 Assessment & Plan (09/26/2021 6:58 PM CDT): BP stable on t.i.d. hydralazine, continue this Assessment & Plan (09/19/2021 12:49 PM CDT): Blood pressure well controlled on hydralazine 25 mg t.i.d.. Assessment & Plan (09/05/2021 3:12 PM CDT): BP elevated. Start Hydralazine 25mg TID. Monitor. Assessment & Plan (09/04/2021 3:53 PM CDT): Blood pressure soft. Lisinopril, propranolol, hydrochlorothiazide on hold Assessment & Plan (09/01/2021 3:08 PM CDT): BP soft. All BP meds placed on hold. IVF 100ml/hr started continuous. Assessment & Plan (08/30/2021 5:40 PM CDT): Blood pressure control, heart rate in 50-60. Continue lisinopril, hydrochlorothiazide, propanolol. Monitor blood pressure adjust meds accordingly. Assessment & Plan (08/29/2021 11:00 AM CDT): Mild fluctuations. Stable for age. Continues on Lisinopril, HCTZ, Propranolol. Monitor and adjust as clinically indicated. Assessment & Plan (08/29/2021 5:40 AM CDT): BP fluctuates. Cont HCTZ 12.5 mg bid, lisinopril 40 mg, propanolol 20 mg bid. Monitor BP, adjust meds accordingly. Mixed hyperlipidemia 08/29/2021 Assessment & Plan (08/29/2021 5:41 AM CDT): On crestor 40 mg Benign prostatic hyperplasia with urinary retent ion 08/29/2021 Assessment & Plan (10/04/2021 3:29 PM CDT): Difficulty passing straight cath on my exam as well, I was able to place a 24 Lithuanian Galaviz catheter which we will leave in place pending urology follow-up. is concerned that patient will not be able to go to Urology appointment due to weakness and diarrhea. Patient with known BPH and reports urologist recommended a cystoscopy, she does not think he could tolerate the sedation for this procedure due to decline in cognition and function. Continue Galaviz catheter for now, monitor output, will send UA and culture. Assessment & Plan (10/02/2021 10:53 AM CDT): Pt has been voiding without galaviz, bladder scan have been negative for retention, continue flomax, to monitor output Assessment & Plan (09/26/2021 6:57 PM CDT): Continue Flomax, may leave Galaviz out for now as long as patient is voiding, bladder scan Q shift for the next 48 hours Assessment & Plan (09/19/2021 1:07 PM CDT): Galaviz bag switched to leg bag which patient is tolerating better in light of dementia and agitation, continue to monitor output and flush p.r.n. Assessment & Plan (09/04/2021 3:49 PM CDT): Galaviz in place. Draining light yellow urine. Continue Flomax Assessment & Plan (09/01/2021 3:07 PM CDT): Nursing to replace galaviz. Believe retention could be attributing to agitation. Assessment & Plan (08/30/2021 5:41 PM CDT): Continue Flomax 0.8 mg. Will attempt to remove Galaviz early next week Assessment & Plan (08/29/2021 11:04 AM CDT): Continues on Flomax. Urology consulted for post op urinary retention. Rec Galaviz, flomax. Voiding trial when more mobile and cognition improved. Will increase Flomax to 0.8mg, D/c Myrbetriq. F/U Dr. Mcadams OP for cystoscopy. Hopeful can attempt next week. Assessment & Plan (08/29/2021 5:41 AM CDT): On flomax, cont galaviz Toxic metabolic encephalopathy 08/29/2021 Assessment & Plan (09/06/2021 12:49 PM CDT): Pt cont to be confuse, but alertness is better. Has restlessness, unsure if due to any pain, but no grimacing. HCT neg for any acute changes. asking to send pt to ER for this continuous confusion and worsening Cr Assessment & Plan (09/05/2021 3:28 PM CDT): Continues to be severely confused from baseline s/t dehydration, UTI. Have reviewed medications and attempted to d/c polypharmacy. Monitor closely. Repeat labs in am. Head CT ordered. Assessment & Plan (09/04/2021 3:51 PM CDT): Patient continue to have fluctuating mental status. Urine culture came back positive for Proteus, currently on antibiotic IV. Poor oral intake when sleeping, will give IV fluid. Labs ordered for tomorrow. Assessment & Plan (09/01/2021 3:11 PM CDT): Have reduced Seroqul to 25mg & Ativan to 0.25mg, both prn. Concerns for overmedication causing lethargy. He is now dehydrated d/t sleeping & not eating. IVF started. UA, stat CBC & CMP ordered. Grimacing but unsure of pain source - start tyl supp. Assessment & Plan (08/30/2021 5:44 PM CDT): Patient had a fall last night as was confused and restless. Today morning is sleeping not waking up. Per patient was better yesterday morning and afternoon, evening was slightly confused before she left him. Likely due to owning. Continue with ativan nightly, otherwise prn. Assessment & Plan (08/29/2021 11:08 AM CDT): S/p IVF. Etiology likely multifactorial for post-op, new facility, opioids, urinary retention. UA negative. Labs pending for today. Currently on Ativan 1mg daily in am + prn. Today, he is sleeping in bed. Does not wake for exam. & son at bedside, report better night. State he is not waking, participating in tx or eating now. Will change carina Ativan 1mg nightly, continue PRN Ativan. Will order PRN Seroquel. Family agreeable to POC. Assessment & Plan (08/29/2021 6:00 AM CDT): Pt has baseline some cognitive impairment, which progressively worsened after AAA repair. On arrival to [facility] pt was restless, agitated and hallucinating. Can be 2/2 anesthesia, opioids pain meds, urinary retention, pain. Pt pulled out his galaviz twice on weekend. Was sent to ER for Galaviz reinsertion. Labs showed no UTI, bmp positive for prerenal azotemia. Given NOrco, IVF. Confusion improved somewhat and transferred back to [facility]. Today still feels that pt confusion is at worse level. She will discuss with her younger son about code status (as now full code). Will cont ativan 1mg daily, 2mg q8 prn and 1 mg IV q6 prn. Avoid deliriogenic drugs. Will give IVF. 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 Seroquel, provide frequent safety checks, await LTC placement Assessment & Plan (10/02/2021 10:54 AM CDT): Mood and affect today similar to previous exams, continue supportive care, PT.OT, BUD seroquel, will add mirtazapine HS, repeat weight this week, await LTC placement in memory care unit or SNF Assessment & Plan (09/28/2021 9:18 AM CDT): Patient with advanced cognitive impairment, continue supportive care, b.i.d. Seroquel, assist with meals, mobility, encourage oral hydration and monitor weight. Pending placement in long-term care facility. 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 Likely he will require long- term care in a shelter facility as is not able to care for him at home, continue b.i.d. Seroquel, encourage out of bed activity, promote sleep hygiene, monitor weight and nutrition, encourage oral hydration Assessment & Plan (09/19/2021 12:41 PM CDT): Labs 08/2021: TSH 1.92, Vit D 48, Vit B12 > 2000. Baseline dementia likely worsen due to recent Vas surgery, UTIs, Galaviz catheter, prolonged hospitalization inc rehab facilities. Cont seroquel 50 mg bid. If pt behavior improved with Seroquel but remains more somnolent daytime, may consider to start low dose Provigil to improve involvement in physical activities. Cont to monitor, family during daytime, with private sitter night time. Assessment & Plan (09/19/2021 11:45 AM CDT): Will increase Seroquel to 50 mg b.i.d., continue to promote sleep hygiene, do not administer medications or treatments overnight, family to provide sitter at bedtime. Continue PT OT as tolerated, out of bed activity during the day, encourage oral hydration. Assessment & Plan (09/17/2021 6:55 PM CDT): Patient with ongoing restlessness, anxiety, agitation, multiple falls since surgery, has tolerated b.i.d. Seroquel while inpatient, per records did not do well with benzos, will continue to provide supportive care and maintain 1 on 1 monitoring, encourage oral hydration and nutrition, promote sleep hygiene, PT/OT as tolerated. Pt is unable to engage in conversation at all. is very tearful about pt cognitive condition, states he would not want a breathing tube, she does not want him to go back to the hospital, comfort measures and reassurance provided, he is a DNR Assessment & Plan (08/29/2021 5:59 AM CDT): Per pt has baseline some cognitive changes for the past few months, but pt was functional . NOw since after surgery has more confusion, restlessness. Will check TSH, Vit D& B12 Weakness 10/17/2020 Vaccination refused by patient 02/07/2018 Abdominal aortic aneurysm (AAA) without rupture 09/29/2017 Bradycardia 08/27/2017 Cardiomyopathy 08/27/2017 Anxiety 07/24/2017 Urge incontinence of urine 05/08/2017 Peptic ulcer 11/28/2012 Hypernatremia Delirium due to another medical condition Hypokalemia Acute encephalopathy Social History Tobacco Use Types Packs/Day Years Used Date Smoking Tobacco: Former Cigarettes Q uit: 08/26/2012 Smokeless Tobacco: Never Alcohol Use Standard Drinks/Week Comments Yes 1 (1 standard drink = 0.6 oz pur e alcohol) AUDIT-C Answer Date Recorded Q1: How often do you have a drink containing alc ohol? Never 11/21/2021 Average Number of Drinks Not on file 022 Frequency of Binge Drinking Not on file 11/10 Personal Safety Answer Date Recorded Have you ever been in or are you currently in a harmful physical or emotional relationship or is someone making you feel afraid or unsafe? 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 Gender Identity Not on file Sexual Orientation Not on file Last Filed Vital Signs Vital Sign Reading Time Taken Comments Blood Pressure 165/96 08/12/2022 10:55 PM CDT Pulse 68 08/12/2022 10:55 PM CDT Temperature 36.7 C (98 F) 08/12/2022 7:14 PM CDT Respiratory Rate 18 08/12/2022 10:55 PM CDT Oxygen Saturation 96% 08/12/2022 10:55 PM CDT Inhaled Oxygen Concentration - - Weight 70.8 kg (156 lb) 08/12/2022 7:14 PM CDT Height 182.9 cm (6' 0.01 ) 08/12/2022 7:14 PM CD T Body Mass Index 21.15 08/12/2022 7:14 PM CDT Plan of Treatment Not on file Procedures Procedure Name Priority Date/Time Associated Diagnosis Comments EGFR STAT 08/12/2022 9:22 PM CDT HEMOGLOBIN A1C Routine 09/06/2021 7:17 PM CDT from Last 3 Months or Most Recently Relevant to Health Maintenance Results * eGFR (08/12/2022 9:22 PM CDT) eGFR 66 mL/min/1. 73 m2 [facility] Comment: Interpretive Data Reference Interval Normal >/= 90 mL/min/1.73m2 Mildly decreased* 60 - 89 mL/min/1.73m2 Mildly to moderately decreased 45 - 59 mL/min/1.73m2 Moderately to severely decreased 30 - 44 mL/min/1.73m2 Severely decreased 15 - 29 mL/min/1.73m2 Kidney Failure < 15 mL/min/1.73m2 *Relative to young adult level Estimated glomerular filtration rate is determined by the 2020 CKD-EPI equation recommended by the National Kidney Foundation (A Unifying Approach to GFR Estimation: Recommendations of the NKF-ASK Task Force on Reassessing the Inclusion of Race in Diagnosing Kidney Disease, JASN 2020). The CKD-EPI equation should not be used for patients with unstable renal function and has not been validated in children and those over 70. Current interpretive data was last reviewed 2021. Testing performed by: [facility], [address] [place] [address]., [id number] Blood 08/12/2022 9:22 PM CDT 08/12/2022 9:28 PM CDT Suzanna Michael DO LAB BLOOD ORDERABLES Final Resu lt [facility] [address] [facility] [place] [address] * (ABNORMAL) Hemoglobin A1c (09/06/2021 7:17 PM CDT) Hgb A1C 7.1(H) 4.0 - 5.6 % EMIL [facility]RETT Estimated Average Glucose 157 mg/dL EMIL [facility]RE[facility] Comment: The ADA recommends reporting an estimated Average Glucose (eAG) with all Hemoglobin A1c results using the equation derived from a study of 507 normal and diabetic adults. Minority populations were underrepresented and children were not included. (Diabetes Care 31:7994-0882, 2008). The eAG is not equivalent to a fasting glucose. 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 Use antibiotics, IV Fluids, and medical treatment unless specifically selected below: No intubation * Full Code Date Activated Date Inactivated Comments 09/06/2021 5:41 PM 09/06/2021 5:41 PM Care Teams Interactive Developer Relationship Specialty Start Date End Date Terry Ramos DO [address] [place] [id number] PCP - General Internal Medicine 05/27/24
--- OUTSIDE RECORDS SUMMARY | 2024-08-02 10:14 | XMS_ITS | Clinical Summary ---
Author Organization [facility] Address [address] [place] [address] Care Team Providers Care Trimmer Climber Name Role Phone Terry Ramos DO Primary Care Provider [phone]- [phone] Allergies Active Allergy Reactions Criticality Noted Date [...] with sending to ED vs staying at [facility]. Provider to f/u in am with patient [...] Dr. Simons. Continue Tyl q6h carina + [place] PRN. If continues to have increased altered mental status consider d/c [place]. Continue wound care. Will need f/u & [...] I was able to place a 24 Bruneian Galaviz catheter which we will leave in [...] worsened after AAA repair. On arrival to [facility] pt was restless, agitated and hallucinating. Can be 2/2 anesthesia, opioids pain meds, urinary retention, pain. Pt pulled out his galaviz twice on weekend. Was sent to ER for Galaviz reinsertion. Labs showed no UTI, bmp positive for prerenal azotemia. Given NOrco, IVF. Confusion improved somewhat and transferred back to [facility]. Today still feels that pt confusion is [...] 3:30 PM CDT): Continue supportive care on chcf unit, encourage oral nutrition and hydration, b.i.d. [...] well with therapy but remains dependent on metallurgical laboratory assistant care. Likely he will require long- term care in a chcf facility as is not able to care [...] to another medical condition Hypokalemia Acute encephalopathy Surgical History Surgery Date Site/Laterality Comments VASECTOMY CHOLECYSTECTOMY Medical History Medical History Date Comments Hypertension Hyperlipoproteinemia Cardiomyopathy (HCC) Diabetes (HCC) Benign prostatic hyperplasia Abdominal aortic aneurysm (AAA) Diverticulosis Osteoarthritis Panic attacks Allergic rhinitis Family History Medical History Relation Name Comments Pancreatic cancer Father Relation Name Status Comments Father Mother Social History Tobacco Use Types Packs/Day Years Used Date Smoking Tobacco: Former Cigarettes Q uit: 08/26/2012 Smokeless Tobacco: Never Alcohol Use Standard Drinks/Week Comments Yes 1 (1 standard drink = 0.6 oz pur e alcohol) AUDIT-C Answer Date Recorded Q1: How often do you have a drink containing alc ohol? Never 11/21/2021 Average Number of Drinks Not on file Frequency of Binge Drinking Not on file 11/10 Personal Safety Answer Date Recorded Have you ever been in or are you currently in a harmful physical or emotional relationship or is someone making you feel afraid or unsafe? 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 Gender Identity Not on file Sexual Orientation Not on file Obstetrics History Last Filed Vital Signs Vital Sign Reading [...] 08/12/2022 7:14 PM CDT Plan of Treatment Health Maintenance Due Date Last Done Comments Albumin Creatinine Ratio, Urine 1936 Depression Screening 1936 Dilated Eye Exam 1936 Foot Exam 1936 Hepatitis B Screening 1954 Zoster Vaccine (1 of 2) 1986 Well Visit 65+ 2001 Hemoglobin A1C 03/08/2022 09/06/2021 Lipid Panel 05/03/2022 05/03/2021, 04/01/2020 Fall Risk Assessment 09/13/2022 09/13/2021 eGFR 08/13/2023 08/12/2022, 08/0 07/2021, 11/12/2021, Additional history exists Influenza Vaccine (#1) 2024 , 02/21/2021, 02/26/2020, Additional history exists DTaP/Tdap/Td Vaccine (3 - Td or Tdap) 08/15/2030 08/15/2020, 06/04/1996, 06/04/1996 Pneumococcal vaccine 65+ Completed 019, 01/28/2019, 05/23/2005, Additional history exists Procedures Procedure Name Priority Date/Time Associated Diagnosis [...] was last reviewed 2021. Testing performed by: [facility], [address] [place] [address], [place]., [address] Blood 08/12/2022 9:22 PM CDT 08/12/2022 9:28 PM CDT us Suzanna Michael DO LAB BLOOD ORDERABLES Final Resu lt Performing Organization Address [facility] Co de Phone Number EMIL [facility] [place] [address] * (ABNORMAL) Hemoglobin A1c (09/06/2021 7:17 PM CDT) Hgb A1C 7.1(H) 4.0 - 5.6 % EMIL Estimated Average Glucose 157 mg/dL EMIL Comment: The ADA recommends reporting an estimated Average Glucose (eAG) with all Hemoglobin A1c results using the equation derived from a study of 507 normal and diabetic adults. Minority populations were underrepresented and children were not included. (Diabetes Care 31:5727-4114, 2008). The eAG is not equivalent to a fasting glucose. Blood 09/06/2021 7:17 PM CDT 09/06/2021 7:57 PM CDT us Rajan Marie MD LAB BLOOD ORDERABLES Final Result Performing Organization Address [facility] de Phone Number [place] [address] [facility] [place] [address] from Last 3 Months or Most Recently Relevant to Health Maintenance Insurance MEDICARE FOR LIFE FOR LIFE MEDICARE [facility] FOR LIFE MEDICARE Advance Directives For more information, please contact: [phone] Documents on File Type Date Recorded Patient Hospital Receiving Clerk Expl anation ADVANCE DIRECTIVE 09/14/2021 8:13 AM POLST - Phys Order for PT Preferences ADVANCE DIRECTIVE 09/08/2021 11:55 AM Renata ng Will ADVANCE DIRECTIVE 09/08/2021 11:54 AM Yee r of Car Seat Coverer-Medical * LIMITED - No CPR (Latest Code [...] 5:41 PM 09/06/2021 5:41 PM Care Teams Trimmer Climber Relationship Specialty Start Date End Date Terry Ramos DO [address] [place] [address] PCP - General Internal Medicine 05/27/24
[2024-08-02 10:43] VITALS: BP 128/87; PULSE 74; RESP 14; TEMP 36.6; O2SAT 94
[2024-08-02 11:16] VITALS: BP 131/68; PULSE 68; RESP 13; TEMP 36.7; O2SAT 97
--- OUTSIDE RECORDS SUMMARY | 2024-08-02 11:22 | XMS_ITS | Clinical Summary ---
Author Organization [facility] Address [address] [place] [address] Care Team Providers Care Finger Waver Name Role Phone Terry Koch MD Unavailable [phone] Vinnie Lamb MD Unavailable Suzette Galeana [facility] Primary Care Provider [phone] Allergies Active Allergy Reactions Criticality Noted Date [...] aortic aneurysm (AAA) without rupture 09/29/2017 Cardiomyopathy ([facility]) 08/27/2017 Bradycardia 08/27/2017 Anxiety 07/24/2017 Hyperlipidemia 05/08/2017 Urge incontinence of urine 05/08/2017 Diabetes mellitus ([facility]) 11/28/2012 Overview (09/29/2018): Description: 11/26/2000 [...] Wade RN Medical Devices Implanted Type Area Commercial Litigation Associate Device Identifier Shelf Expiration Date Model / Serial / Lot Helifx Trolley Car Operator And 10 Anchors - [id number] Implanted:Qty: 6 on 08/21/2021 by Dawood Simons MD at [facility] [place] N/A: Aorta APTUS [id number] 08/17/2022 - / / [id number] 2 Description:6 GRAFT ANCHORS PUT IN Endurant 2 Stent Graft System Bifurcated Implanted:Qty: 1 on 08/21/2021 by Dawood Simons MD at [facility] Graft N/A: Aorta [employer] DIV [employer] 05/28/2023 [id number] / [id number] / Endurant 2 Stent Graft System Implanted:Qty: 1 on 08/21/2021 by Dawood Simons MD at [facility] Graft Left: Iliac [employer] 03/08/2023 [id number] / [id number] / Description:LEFT AORTA/LEFT ILIAC ARTERY GRAFT Endurant 2 Stent Graft Sysytem Implanted:Qty: 1 on 08/21/2021 by Dawood Simons MD at [facility] Graft Right: Iliac [employer] 08/23/2022 [id number] / [id number] / Description:RIGHT ILIAC KAYLYNN RY/AORTA GRAFT Procedures Procedure Name Priority Date/Time Associated Diagnosis Comments HEMOGLOBIN, GLYCOSYLATED Routine 09/18/2022 LIPID PANEL Routine 05/03/2021 7:45 AM PRODUCT MANAGEMENT ANALYST Hyperlipidemia, unspecified hyperlipidemia type from Last 3 Months or Most Recently Relevant to Health Maintenance Results * HEMOGLOBIN, GLYCOSYLATED (09/18/2022) HGB A1C 6.7 % Narrative Resulting Agency Comment us Default History Genericprovider LABORATORY Final Result * (ABNORMAL) LIPID PANEL (05/03/2021 7:45 AM PRODUCT MANAGEMENT ANALYST) CHOLESTEROL 147 0 - 199 MG/DL [facility] TRIGLYCERIDES 211(H) 0.00 - 150.00 MG/DL [facility] Comment: NCEP REFERENCE VALUES FOR TRIGLYCERIDES: NORMAL: <150 MG/DL BORDERLINE HIGH: 150 - 199 MG/DL HIGH: 200 - 499 MG/DL VERY HIGH: >/= 500 MG/DL HDL 36(L) >40 MG/DL [facility] LDL (CALCULATED) 69 0 - 99 MG/DL [facility] Comment: CUTOFF VALUES RECOMMENDED BY THE NATIONAL CHOLESTEROL EDUCATION PROGRAM: DESIRABLE: CHOLESTEROL <200 MG/DL LDL <100 MG/DL BORDERLINE: CHOLESTEROL 200-239 MG/DL LDL 101-159 MG/DL HIGHER RISK: CHOLESTEROL >240 MG/DL LDL >160 MG/DL, HDL <40 MG/DL NON HDL CHOLESTEROL 111 NO REFERENCE RANGE MG/DL [facility] Comment: A REASONABLE GOAL FOR NON-HDL CHOLESTEROL IS ONE THAT IS 30 MG/DL HIGHER THAN THE LDL CHOLESTEROL GOAL. CHOL/HDL RATIO 4.1 0.0 - 5.0 . [facility] Comment:IS PATIENT FASTING?- >YES 05/03/2021 7:45 AM PRODUCT MANAGEMENT ANALYST 05/04/2021 5:47 AM PRODUCT MANAGEMENT ANALYST us Ajay Abdi MD LABORATORY Final Result Performing Organization Address City/State/[facility] Co de Phone Number [facility] [address] [place] [address], from Last 3 Months or Most Recently Relevant to Health Maintenance Insurance MEDICARE MEDICARE MEDICARE [employer] Advance Directives * Full Code (Latest Code Status on File) Date Activated Date Inactivated Comments 08/21/2021 5:24 PM 08/25/2021 4:19 PM Care Teams Finger Waver Relationship Specialty Start Date End Date Suzette Galeana, [facility]- [address] [place] [address] PCP - General NURSE PRACTITIONER 11/10/21 Terry Koch MD [facility]. [address] [place] [address] Calera Bull Gang Supervisor CARDIOVASCULAR DISEASE 08/15/17 Vinnie Lamb MD [facility]. [address] [place] [address] EP Bull Gang Supervisor CLINICAL CARDIAC ELECTROPHYSIOLOGY 10/15/17
--- OUTSIDE RECORDS SUMMARY | 2024-08-02 11:23 | XMS_ITS | Referral Summary ---
Author Organization [facility] Address [address] [place] [address] Care Team Providers Care Assistant Manager Airside Operations Name Role Phone Terry Ramos DO Primary Care Provider [phone] Allergies Active Allergy Reactions Criticality Noted Date [...] with sending to ED vs staying at [facility]. Provider to f/u in am with patient [...] Dr. Simons. Continue Tyl q6h carina + [place] PRN. If continues to have increased altered mental status consider d/c [place]. Continue wound care. Will need f/u & [...] I was able to place a 24 Slovak Galaviz catheter which we will leave in [...] worsened after AAA repair. On arrival to [facility] pt was restless, agitated and hallucinating. Can be 2/2 anesthesia, opioids pain meds, urinary retention, pain. Pt pulled out his galaviz twice on weekend. Was sent to ER for Galaviz reinsertion. Labs showed no UTI, bmp positive for prerenal azotemia. Given NOrco, IVF. Confusion improved somewhat and transferred back to [facility]. Today still feels that pt confusion is [...] well with therapy but remains dependent on time cycle operator care. 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 Testing performed by: [facility], [address] [place] [address]., [id number] Blood 08/12/2022 9:22 PM CDT 08/12/2022 9:28 PM CDT Suzanna Michael DO LAB BLOOD ORDERABLES Final Resu lt EMIL JARRETT [address] [facility] Department [place] [address] * (ABNORMAL) Hemoglobin A1c (09/06/2021 [...] and children were not included. (Diabetes Care 31:2683-9061, 2008). The eAG is not equivalent to a fasting glucose. Blood 09/06/2021 7:17 PM CDT 09/06/2021 7:57 PM CDT us Rajan Marie MD LAB BLOOD ORDERABLES Final Result [place] [address] [facility] Department [place] [address] from Last 3 Months or Most Recently Relevant to Health Maintenance Insurance MEDICARE FOR LIFE FOR LIFE MEDICARE [facility] Address: [address] [address] [place] [address] [facility] MEDICARE Advance Directives For more information, please contact: [phone] Documents on File Type Date Recorded Patient Collection Support Specialist Expl anation ADVANCE DIRECTIVE 09/14/2021 8:13 AM POLST - Phys Order for PT Preferences ADVANCE DIRECTIVE 09/08/2021 11:55 AM Renata jett Will ADVANCE DIRECTIVE 09/08/2021 11:54 AM Yee r of Shaper Setter-Medical * LIMITED - No CPR (Latest Code [...] 5:41 PM 09/06/2021 5:41 PM Care Teams Assistant Manager Airside Operations Relationship Specialty Start Date End Date Terry Ramos DO [address] [place] [address] PCP - General Internal Medicine 05/27/24
--- OUTSIDE RECORDS SUMMARY | 2024-08-02 11:23 | XMS_ITS | Encounter Summary ---
Author Organization [facility] Address [address] [place] [address] Care Team Providers Care Lead Miner Blasting Name Role Phone Ajay Abdi MD Primary Care Provider Unavail able Terry Koch MD Unavailable [phone] Vinnie Lamb MD Unavailable Fransico Rangel DO Primary Care Provider [phone] Suzette Galeana [facility] Primary Care Provider [phone] Encounter Details Date Type Department Care Team (Late st Contact Info) Description 10/15/2017 [facility] at [address] [address] Rufus Arenas MA Social History [...] Final Result * MAGNESIUM (09/18/2022) Pathologist [facility] MAGNESIUM 1.90 Narrative Resulting Agency Comment Default History Genericprovider LABORATORY Final Result * COMPREHENSIVE METABOLIC PANEL (06/01/2022) Pathologist [facility] SODIUM S/P/B 144 GLUCOSE 145 mg/dL AST 11 BUN 21 CREATININE S/P/B 1.20 0.7 - 1.3 CALCIUM S/P/B 9.0 POTASSIUM S/P/B 4.3 CHLORIDE S/P/B 107 ALT 13 GFR ESTIMATE 9.0 Narrative Resulting Agency Comment Result [facility] History Genericprovider LABORATORY Final Result * CBC, MANUAL DIFF (06/01/2022) Pathologist [facility] WBC 6.77 HGB 13.7 HCT 42.3 PLT 106 Narrative Resulting Agency Comment Result [facility] History Genericprovider LABORATORY Final Result * HEMOGLOBIN, GLYCOSYLATED (06/01/2022) Pathologist [facility] HGB A1C 6.8 % Narrative Resulting Agency Comment Result [facility] History Genericprovider LABORATORY Final Result * MAGNESIUM (06/01/2022) MAGNESIUM 1.90 Narrative Resulting Agency Comment Default History Genericprovider LABORATORY Final Result * CBC (OUTSIDE LAB) (03/04/2018) Pathologist [facility] WBC 6.0 HGB 15.1 HCT 46.9 PLT 137 03/04/2018 us Doc [facility] Abstract LAB-OUTSIDE/ABSTRACTED Final Result * LIPID PANEL (02/05/2018) Pathologist [facility] CHOLESTEROL 111 HDL 33 TRIGLYCERIDES 97 LDL [...] * BASIC METABOLIC PANEL (11/27/2017) Pathologist [facility] SODIUM S/P/B 139 POTASSIUM S/P/B 3.8 CO2 24 CHLORIDE S/P/B 102 GLUCOSE 165 mg/dL CALCIUM S/P/B 9.2 BUN 15 CREATININE S/P/B 1.10 0.7 - 1.3 EGFR AFR. AMER. 82.6 EGFR NON-AFR. AMER. 68.3 <=90 11/27/2017 us Doc [facility] Abstract LABORATORY Final Result * HEMOGLOBIN, GLYCOSYLATED (04/25/2017) Pathologist [facility] HGB A1C 7.1 04/25/2017 us Doc [facility] Abstract LABORATORY Final Result * LIPID PANEL (04/25/2017) Pathologist [facility] CHOLESTEROL 120 HDL 34 TRIGLYCERIDES 131 LDL [...] documented as of this encounter Care Teams Lead Miner Blasting Relationship Specialty Start Date End Date Ajay Abdi MD PCP - General FAMILY PRACTICE 07/11/17 05/07/21 Fransico Rangel DO [facility] [address] [place] [address] PCP - General FAMILY PRACTICE 05/08/21 11/09/21 Suzette Galeana, RADAR SCIENTIST- [address] [place] [address] PCP - General NURSE PRACTITIONER 11/10/21 Terry Koch MD [address] [address] [place] Director Family CARDIOVASCULAR DISEASE 08/15/17 Vinnie Lamb MD [facility] [address] [place] [address] EP Director Family CLINICAL CARDIAC ELECTROPHYSIOLOGY 10/15/17 documented as of this encounter
--- OUTSIDE RECORDS SUMMARY | 2024-08-02 11:23 | XMS_ITS | Encounter Summary ---
Author Organization [facility] Address [address] [place] [address] Care Team Providers Care X Ray Electronics Wiring Technician Name Role Phone Ajay Abdi MD Primary Care Provider Unavail able Terry Koch MD Unavailable [phone] Vinnie Lamb MD Unavailable Fransico Rangel DO Primary Care Provider [phone] Suzette Galeana [facility] Primary Care Provider [phone] Encounter Details Date Type Department Care Team (Latest Contact Info) Description 03/18/2018 Abstract [facility] , Kala Gamboa MD [...] documented as of this encounter Care Teams [employer] Electronics Wiring Technician Relationship Specialty Start Date End Date Ajay Abdi MD PCP - General FAMILY PRACTICE 07/11/17 05/07/21 Fransico Rangel DO [address] [place] [address] PCP - General FAMILY PRACTICE 05/08/21 11/09/21 Suzette Galeana, [facility] [address] [place] [address] PCP - General NURSE PRACTITIONER 11/10/21 [facility] [address] [place] [address] [place] Credit Administration Specialist CARDIOVASCULAR DISEASE 08/15/17 Vinnie Lamb MD [facility] [address] [place], [place] [address] EP Credit Administration Specialist CLINICAL CARDIAC ELECTROPHYSIOLOGY 10/15/17 documented as of this encounter
--- OUTSIDE RECORDS SUMMARY | 2024-08-02 11:23 | XMS_ITS | Clinical Summary ---
Author Organization [facility] Address [address] [place] [address] Care Team Providers Care Rn Triage Name Role Phone Terry Ramos DO Primary Care Provider [phone]- [phone] Allergies Active Allergy Reactions Criticality Noted Date [...] with sending to ED vs staying at [facility]. Provider to f/u in am with patient [...] Dr. Simons. Continue Tyl q6h carina + [place] PRN. If continues to have increased altered mental status consider d/c [place]. Continue wound care. Will need f/u & [...] I was able to place a 24 Hungarian Galaviz catheter which we will leave in [...] worsened after AAA repair. On arrival to [facility] pt was restless, agitated and hallucinating. Can be 2/2 anesthesia, opioids pain meds, urinary retention, pain. Pt pulled out his galaviz twice on weekend. Was sent to ER for Galaviz reinsertion. Labs showed no UTI, bmp positive for prerenal azotemia. Given NOrco, IVF. Confusion improved somewhat and transferred back to [facility]. Today still feels that pt confusion is [...] 3:30 PM CDT): Continue supportive care on long term unit, encourage oral nutrition and hydration, b.i.d. [...] well with therapy but remains dependent on multimedia coordinator care. 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 Testing performed by: [facility], [address] [place] [address], [place]., [address] Blood 08/12/2022 9:22 PM CDT 08/12/2022 9:28 PM CDT us Suzanna Michael DO LAB BLOOD ORDERABLES Final Resu lt Performing Organization Address [facility] Co de Phone Number [facility] [place] [address] * (ABNORMAL) Hemoglobin A1c (09/06/2021 7:17 PM CDT) Hgb A1C 7.1(H) 4.0 - 5.6 % EMIL Estimated Average Glucose 157 mg/dL EMIL Comment: The ADA recommends reporting an estimated Average Glucose (eAG) with all Hemoglobin A1c results using the equation derived from a study of 507 normal and diabetic adults. Minority populations were underrepresented and children were not included. (Diabetes Care 31:0209-0205, 2008). The eAG is not equivalent to a fasting glucose. Blood 09/06/2021 7:17 PM CDT 09/06/2021 7:57 PM CDT us Rajan Marie MD LAB BLOOD ORDERABLES Final Result Performing Organization Address [facility] de Phone Number [place] [phone] [facility] [employer] [place] [address] from Last 3 Months or Most Recently Relevant to Health Maintenance Insurance MEDICARE FOR LIFE FOR LIFE MEDICARE [facility] FOR LIFE MEDICARE Advance Directives For more information, please contact: [phone] Documents on File Type Date Recorded Patient Quality Assurance Monitor Expl anation ADVANCE DIRECTIVE 09/14/2021 8:13 AM POLST - Phys Order for PT Preferences ADVANCE DIRECTIVE 09/08/2021 11:55 AM Renata ng Will ADVANCE DIRECTIVE 09/08/2021 11:54 AM Yee r of Sexton Helper-Medical * LIMITED - No CPR (Latest Code [...] 5:41 PM 09/06/2021 5:41 PM Care Teams Rn Triage Relationship Specialty Start Date End Date Terry Ramos DO [address] [place] [address] PCP - General Internal Medicine 05/27/24
--- NOTE | 2024-08-02 12:00 | ED_ITS ---
HPI - Fall General Chief Complaint: Fall Stated Complaint: fall Time Seen by Provider: 08/02/24 10:50 Source: family Mode of arrival: ambulatory Limitations: dementia History of Present Illness HPI Narrative: 88 YEARS OLD WHITE MALE C[facility]ANCE, WITH HIS WHO IS TELLING ME THAT PATIENT HAD A FALL IN THE BATHROOM TODAY. SHE REPORT THAT PATIENT HAVE AT LEAST 3 FALLS OVER THE LAST 2 WEEKS, LOOKS A LITTLE BIT WEAKER THAN USUAL. HISTORY OF ADVANCED ALZHEIMER'S, HIS BASELINE IS DISORIENTATION TIME FOR. POSSIBLE HEAD INJURY. Related Data Allergies Allergy/AdvReac Type Severity Reaction Status Date / Time carvedilol Allergy Nausea and Verified 06/28/22 22:58 Vomiting donepezil (From Aricept) Allergy Nausea and Verified 06/28/22 22:58 Vomiting Penicillins Allergy Rash Verified 06/28/22 22:58 clindamycin AdvReac Hallucinati Verified 06/28/22 22:58 ng codeine AdvReac Hallucinati Verified 06/28/22 22:58 ng diphenhydramine (From AdvReac Hallucinati Verified 06/28/22 22:58 Benadryl) ng gemfibrozil (From Lopid) AdvReac Cramping Verified 06/28/22 22:58 of the Muscles promethazine AdvReac Confusion Verified 06/28/22 22:58 verapamil AdvReac Cramping Verified 06/28/22 22:58 of the Muscles Review of Systems Review of Systems: All systems reviewed & are unremarkable except as noted in HPI and below PMFSH Past Medical History Medical History BPH (benign prostatic hyperplasia) Diabetes HTN (hypertension) Dementia Social History Social History Social History: denies drugs alcohol or tobacco. Exam Narrative: GENERAL APPEARANCE: WELL-DEVELOPED, WELL-NOURISHED SKIN: NORMAL COLOR HEAD: NORMOCEPHALIC, NONTRAUMATIC EYES: CLEAR CONJUNCTIVA ENT: OROPHARYNX NORMAL, EARS NORMAL, NOSE NORMAL NECK: SUPPLE, NONTENDER CHEST AND RESPIRATORY: AIRWAY PATENT, NO RESPIRATORY DISTRESS, NO ACCESSORY M USCLE USE HEART: REGULAR RATE/RHYTHM ABDOMEN: SOFT, NONTENDER, NO ORGANOMEGALY, QUIET BOWEL SOUNDS VASCULAR: NORMAL PERIPHERAL PULSES, NORMAL CAPILLARY REFILL. MUSCULOSKELETAL: NORMAL RANGE OF MOTION, NONTENDER BACK NEUROLOGIC: ALERT AND ORIENTED ?3, OPERATIONS SUPPORT COORDINATOR IS NORMAL TESTED, NO GROSS MOTOR DEFICIT Course Course Emergency Course: PATIENT CAME FROM [facility] WITH HISTORY OF MULTIPLE FALLS, CT HEAD AND CT CERVICAL SPINE WITHOUT CONTRAST SHOWED NO ACUTE ABNORMALITY PATIENT'S DECLINED ANY BLOOD WORKUP AT THIS TIME, SHE IS TELLING ME THAT HE HAD RECENT BLOOD WORKUP AND URINALYSIS AT THE FACILITY. AND WOULD LIKE TO GO HOME AFTER GETTING THE RESULT OF THE CT HEAD AND NECK. T Vital Signs Vital signs: Vital Signs Temperature 36.7 C 08/02/24 10:11 Pulse Rate 67 08/02/24 10:11 Respiratory Rate 16 08/02/24 10:11 Blood Pressure 108/69 08/02/24 10:11 Pulse Oximetry 97 08/02/24 10:11 Temperature 36.7 C 08/02/24 10:11 Pulse Rate 67 08/02/24 10:11 Respiratory Rate 16 08/02/24 10:11 Blood Pressure 108/69 08/02/24 10:11 Pulse Oximetry 97 08/02/24 10:11 MDM - Fall Imaging Data Radiologist's impression: Impressions Head CT 08/02/24 10:59 Impression: No acute intracranial hemorrhage or suspicious mass effect. Inflammatory sinus disease. Cervical Spine CT 08/02/24 11:09 Impression: Severe degenerative disease, without acute fracture. Critical Care Time Critical Care Time Critical Care Time: No Discharge Plan Discharge Clinical Impression: Fall Patient Disposition: NH Residential/Asst Living Condition: Stable Instructions: Fall Prevention for Older Adults (ED) Additional Instructions: RETURN IF SYMPTOMS ARE WORSENING , CALL YOUR FAMILY PHYSICIAN FOR APPOINTMENT, TAKE TYLENOL NEEDED FOR ACHES AND PAIN, CONTINUE HOME MEDICATIONS. Patient Language: [place] Prescriptions: No Action cefdinir 300 mg capsule 300 mg PO Q12H Qty: 20 0RF Follow-up/Referrals: Rachel,Terry Madrid DO [Primary Care Provider] -
[2024-08-02 12:11] VITALS: BP 118/68; PULSE 72; RESP 16; TEMP 36.6; O2SAT 100
== END 2024-08-02 12:11 ==
PROVIDERS: Emergency Provider Emergency Medicine; PCP Internal Medicine
DX: R41.0 Disorientation, unspecified (principal); R53.1 Weakness; W19.XXXA Unspecified fall, initial encounter; G30.9 Alzheimer's disease, unspecified; F02.80 Dementia in other diseases classified elsewhere, unspecified severity, without behavioral disturbance, psychotic disturbance, mood disturbance, and anxiety; E11.9 Type 2 diabetes mellitus without complications; I10 Essential (primary) hypertension
CPT/HCPCS: 70450; 72125; 99284